=== PATIENT | female | born 1965 | race Caucasian/White ===

== ENCOUNTER 2019-03-01 08:38 | Outpatient (CLI) | payer MEDICARE, MEDICAID, SELFPAY ==
--- NOTE | 2019-03-01 08:58 | XR_ITS ---
WS: [id number] Lumbar spine, 6 views including flexion, extension and neutral lateral upright views, 03/01/2019 Clinical Data: CHRONIC PAIN Comparison: Lateral lumbar spine, 12/30/2015. Findings: There is a 0.4 cm subluxation of L4 on L5. During flexion and extension the subluxation does not change. There is no limitation of motion. The transverse processes and SI joints are normal. No compression fractures are noted. Minimal anterior o steoarthritic spurring is seen at L3, L4 and L5. There are clips in the right upper quadrant from a cholecystectomy. There is a large amount of fecal material in the colon. XR/XR lumbar spine 6V w f/e 72123 Impression: 1. Fixed subluxation of 0.4 cm of L4 on L5. 2. No change in subluxation during flexion or extension. 3. No limitation of motion on flexion or extension. 4. Minimal osteoarthritis of L3, L4 and L5.
== END 2019-03-01 08:39 | disposition home or self-care (01) ==
LOC: RAD 08:46
PROVIDERS: Family Provider Nurse Practitioner Family; PCP Nurse Practitioner Family; Visit Provider Nurse Practitioner Family
DX: M47.896 Other spondylosis, lumbar region (principal); M54.5 Low back pain; G89.29 Other chronic pain
CPT/HCPCS: 72114

== ENCOUNTER 2019-03-20 07:56 | Day surgery (SDC) | payer MEDICARE, MEDICAID, SELFPAY ==
[2019-03-05 09:59] VITALS: BMI 42.1
--- NOTE | 2019-03-20 08:13 | ANES.PREANES ---
Pre-Anesthetic Assessment Pre-Anesthetic Assessment: Height/Weight: Height 1.6 m Weight 107.955 kg Proposed Procedure: Operation Date: 03/20/19 09:30 Proposed Procedures p EGD/Colon 01176/07500 R10.84(Not Applicable) - Ayaan Villalobos MD s Colonoscopy 02267/ R10.84(Not Applicable) - Ayaan Villalobos MD Social: Social History: Tobacco (quit one year ago) and No alcohol Exam: Pre-Anes Outpt Exam: alert, oriented x 3, clear to auscultation bilaterally and regular rate & rhythm Airway: Dentition: Loose (upper right) and Other (poor) History/ROS: No significant history except as noted Pulmonary: Pulmonary: COPD, BUCIO and Sleep apnea CV/HEM: CV/HEM: Arrythmia (PAT) and HTN : : None reported Hepatic: Hepatic: None reported GI: GI: GERD (controlled) Metabolic: Metabolic: DM, Hyperlipidemia, Morbid obesity and Thyroid Musc/skel: Musc/skel: OA/DJD Neuropsych: Neuropsych: Anxiety and Depression Anesthetic Plan: ASA status: III Anesthesia: Anesthesia Evaluation and MAC Risk of > 500 ml blood loss (7ml/kg in children): No PFSH Anesthesia PFSH: Medical History Arthritis (Acute) Chronic back pain (Acute) Congenital hypothyroidism (Acute) COPD (chronic obstructive pulmonary disease) (Acute) Diabetes (Acute) Hypertension (Acute) Sleep apnea (Acute) Surgical History (Updated 03/20/19 @ 08:14 by Jamie Tong MD) Hx of section (Acute) Hx of cholecystectomy (Acute) Hx of hysterectomy (Acute) Hx of tonsillectomy (Acute) Family History (Updated 03/19/19 @ 14:24 by Jay Jordan LPN) Other Diabetes Hyperlipidemia Hypertension Social History (Updated 03/19/19 @ 14:24 by Jay Jordan LPN) Smoking and tobacco status: former smoker Quit status (tobacco): has quit using tobacco Second hand smoke exposure: Yes Smoking risk assessment/counseling performed?: Yes Alcohol intake: never Data Anesthesia Cardiac Studies: No Data to Display
[2019-03-20 08:44] VITALS: BMI 42.1
[2019-03-20 09:08] VITALS: BP 186/110; PULSE 104; RESP 16; TEMP 36.7; O2SAT 98
[2019-03-20 09:15] LABS: Glucose Point of Care 129 mg/dL (70-110)
--- NOTE | 2019-03-20 10:55 | PM.HPUD ---
H&P update H&P Update: DATE OF SURGERY/PROCEDURE: 03/20/19 DATE H&P PERFORMED: 02/02/19 H&P UPDATE INFORMATION: No changes to prior documentation and H&P to be scanned into chart PREOP DIAGNOSIS: Abdominal pain, chronic constipation PLANNED PROCEDURE: Operation Date: 03/20/19 09:30 Proposed Procedures p EGD/Colon 81035/48699 R10.84(Not Applicable) - Ayaan Villalobos MD s Colonoscopy 60284/ R10.84(Not Applicable) - Ayaan Villalobos MD Conscious Sedation: Patient reassessed prior to sedation, with no change noted: Yes PHYSICAL EXAM: alert and oriented x 3 OTHER PERTINENT EXAM FINDINGS: Abdomen: Soft Full H&P Perinent History: Medical/Surgical History: Medical History (Updated 03/20/19 @ 08:14 by Jamie Tong MD) Arthritis (Acute) Chronic back pain (Acute) Congenital hypothyroidism (Acute) COPD (chronic obstructive pulmonary disease) (Acute) Diabetes (Acute) Hypertension (Acute) Sleep apnea (Acute) Family History: Family History (Updated 03/19/19 @ 14:24 by Jay Jordan LPN) Other Diabetes Hyperlipidemia Hypertension Social History: Social History Smoking and tobacco status: former smoker Quit status (tobacco): has quit using tobacco Second hand smoke exposure: Yes Smoking risk assessment/counseling performed?: Yes Alcohol intake: never
[2019-03-20 10:57] VITALS: BP 108/73; PULSE 77; RESP 16; TEMP 36.3; O2SAT 99
--- NOTE | 2019-03-20 11:01 | ANE.PACU ---
 Inpatient post-anesthesia follow up: Airway intact: Yes Vital signs: Temperature 98.1 F Pulse Rate [Apical ] 104 Respiratory Rate 16 Blood Pressure [Le ft Arm] 186/110 Pulse Oximetry 98 Oxygen Delivery Me thod Oxygen Flow Rate Fraction of Inspir ed Oxygen Hydration adequate: Yes Nausea and vomiting: No Pain level: 3 Mental status: Baseline
[2019-03-20 11:15] VITALS: BP 124/84; PULSE 75; RESP 18; O2SAT 100
[2019-03-20] MEDS: sodium chloride 0.9% 1,000 ML 30 ML (11:27)
== END 2019-03-20 11:30 | disposition home or self-care (01) ==
PROVIDERS: Family Provider Nurse Practitioner Family; PCP Nurse Practitioner Family; Visit Provider Surgery
PROC: 0DJ08ZZ Inspection of Upper Intestinal Tract, Via Natural or Artificial Opening Endoscopic (ICD-10-PCS; CPT 43235; principal; 2019-03-20 09:30)
PROC: 0DJD8ZZ Inspection of Lower Intestinal Tract, Via Natural or Artificial Opening Endoscopic (ICD-10-PCS; CPT 45378; 2019-03-20 09:30)
DX: R10.84 Generalized abdominal pain (principal); K29.70 Gastritis, unspecified, without bleeding; M19.90 Unspecified osteoarthritis, unspecified site; J44.9 Chronic obstructive pulmonary disease, unspecified; E11.9 Type 2 diabetes mellitus without complications; I10 Essential (primary) hypertension; G47.30 Sleep apnea, unspecified; Z82.49 Family history of ischemic heart disease and other diseases of the circulatory system; Z83.3 Family history of diabetes mellitus; Z87.891 Personal history of nicotine dependence; E78.5 Hyperlipidemia, unspecified; E66.01 Morbid (severe) obesity due to excess calories; Z68.41 Body mass index [BMI] 40.0-44.9, adult
CPT/HCPCS: 12345; 36416; 43239; 45378; 82962; 88305; 96365; J2704; J7030

== ENCOUNTER 2019-04-02 15:28 | Outpatient (CLI) | payer MEDICARE, MEDICAID, SELFPAY ==
--- NOTE | 2019-04-02 15:57 | US_ITS ---
WS: [id number] Thyroid ultrasound, 04/02/2019 Clinical Data: NODULE Comparison: None. Findings: The right lobe of thyroid measures 3.1 cm x 0.9 cm x 1.5 cm. The left lobe measures 2.5 cm x 1.1 cm x 1.1 cm. The isthmus measured 0.4 mm. The echotexture of the thyroid is mixed. No nodules, cyst or masses are seen. US/US thyroid [id number] Impression: Mixed echotexture of the thyroid gland..
== END 2019-04-02 15:29 | disposition home or self-care (01) ==
LOC: RAD 15:34
PROVIDERS: Family Provider Nurse Practitioner Family; PCP Nurse Practitioner Family; Visit Provider Nurse Practitioner Family
DX: E04.1 Nontoxic single thyroid nodule (principal)
CPT/HCPCS: 76536

== ENCOUNTER 2019-04-11 15:37 | Outpatient (CLI) | payer MEDICARE, MEDICAID, SELFPAY ==
--- NOTE | 2019-04-11 16:21 | XR_ITS ---
WS: [id number] LEFT ELBOW: 3 VIEW(S) TECHNIQUE: AP, oblique and lateral. HISTORY: PAIN IN LEFT ELBOW COMPARISON: None available. No acute fractures or dislocation. No joint effusion. No soft tissue abnormality. XR/XR elbow LT min 3V* [id number] IMPRESSION: Normal LEFT elbow.
--- NOTE | 2019-04-11 16:21 | XR_ITS ---
WS: [id number] LEFT SHOULDER: 3 VIEW(S) TECHNIQUE: Internal and external rotation with Y view. HISTORY: PAIN IN LEFT SHOULDER COMPARISON: None available. No fracture or dislocation or soft tissue abnormality. Mild narrowing of the AC joint. XR/XR shoulder LT min 2V* [id number] IMPRESSION: Mild AC joint arthritis.
== END 2019-04-11 15:38 | disposition home or self-care (01) ==
LOC: RADWPI 15:43
PROVIDERS: Family Provider Nurse Practitioner Family; PCP Nurse Practitioner Family; Visit Provider Nurse Practitioner Family
DX: M19.012 Primary osteoarthritis, left shoulder (principal); M25.522 Pain in left elbow
CPT/HCPCS: 73030; 73080

== ENCOUNTER 2021-06-03 13:07 | Emergency (ER) | payer MEDICARE, MEDICAID, SELFPAY ==
[2021-06-03 13:12] VITALS: BP 149/96; PULSE 101; RESP 18; TEMP 36.2; O2SAT 97; BMI 41.3
--- NOTE | 2021-06-03 13:42 | XRR_ITS ---
PROCEDURE INFORMATION: Exam: XR Chest Exam date and time: 06/03/2021 2:02 PM Age: 55 years old Clinical indication: Pain; Shortness of breath; Angina pectoris; Additional info: Chest pain TECHNIQUE: Imaging protocol: XR of the chest. Views: 1 view. COMPARISON: CR Chest 1 [place] [id number] 12/10/2018 11:58 AM FINDINGS: Lungs: Unremarkable. No consolidation. Pleural spaces: Unremarkable. No pleural effusion. No pneumothorax. Heart/Mediastinum: Unremarkable. No cardiomegaly. Bones/joints: Unremarkable. XR/XR chest 1V portable [id number] IMPRESSION: No acute findings.
--- NOTE | 2021-06-03 13:42 | ECG_ITS ---
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 Measurements Intervals [place] Rate: 100 P: 62 DC: 164 QRS: 48 QRSD: 92 T: 50 QT: 352 QTc: 455 Interpretive Statements SINUS TACHYCARDIA POSSIBLE ANTERIOR MYOCARDIAL INFARCTION , PROBABLY OLD [30 ms Q WAVE IN V3/V4, OR R < 0.2 mV IN V4] ABNORMAL RHYTHM ECG Compared to ECG 04/18/2017 14:03:06 Myocardial infarct finding now present Sinus rhythm no longer present Sinus arrhythmia no longer present Electronically Signed On 06-03-2021 23:20:45 CDT by Darin López M.D. [id number] f
[2021-06-03 13:43] VITALS: BP 150/101; PULSE 91; RESP 16; O2SAT 100
--- NOTE | 2021-06-03 13:43 | W.ED.ARRPALP ---
HPI - Arrhythmia/Palpitations General: Chief Complaint: Arrhythmia/Palpitations Stated Complaint: N/V, chest pain Time Seen by Provider: 06/03/21 13:22 Source: patient Mode of arrival: ambulatory Limitations: no limitations History of Present Illness: 55-year-old female presents emergency room complaining of nausea vomiting and chest pain that began this morning sensation of palpitations. She is still having some mild epigastric discomfort radiating up into the substernal region. She does have a history of having angiogram was told she had some coronary artery disease but did not do any interventions. Patient is a type II diabetic with diet control. She previously had an EGD that showed bile reflux. She also has chronic constipation issues. She denied any radiation in the neck or arm with the pain. No diaphoresis she is not noticed anything that exacerbates or relieves. She does take aspirin daily she is not on any anticoagulants but is on diltiazem 120 daily and has been for a number of years to the best of her knowledge she has never been told she has atrial fibrillation. MD complaint: rapid heart beat Onset (ago): hour(s) Severity: mild Context: occurred during rest Associated symptoms: Reports nausea; Deny anxiety, cough, diaphoresis, muscle cramps, paresthesias, pre-syncope, sense of impending doom, short of breath, syncope or vomiting Review of Systems Const: Denies: fever(s), chills or diaphoresis ENMT: Denies: throat pain, ear or mastoid pain, nasal discharge or nasal congestion Card: Reports: chest pain and palpitations; Denies: edema, syncope or pre-syncope Resp: Denies: dyspnea, productive cough or non-productive cough GI: Reports: abdominal pain (Epigastric) and nausea; Denies: vomiting : Denies: flank pain, difficulty voiding, dysuria, urinary frequency or urinary urgency Musc: Denies: muscle cramps Skin/Breast: Denies: rash or pruritus Psych: Denies: anxiety PFSH ED PFSH: Medical History Arthritis Chronic back pain Chronic constipation Congenital hypothyroidism COPD (chronic obstructive pulmonary disease) Diabetes Hypertension Sleep apnea Surgical History H/O esophagogastroduodenoscopy 03/12/2019: Bile reflux Hx of section Hx of cholecystectomy Hx of hysterectomy Hx of tonsillectomy Status post colonoscopy 03/12/2019: Incomplete, will schedule barium enema Family History Other Diabetes Hyperlipidemia Hypertension Social History Smoking and tobacco status: former smoker Quit status (tobacco): has quit using tobacco Second hand smoke exposure: Yes Smoking risk assessment/counseling performed?: Yes Alcohol intake: never Physical Exam Const: GENERAL APPEARANCE: cooperative and comfortable ORIENTATION/CONSCIOUSNESS: Yes awake, Yes oriented to person, Yes oriented to place and Yes oriented to time HENMT: COMMON NORMALS: normocephalic, atraumatic and hearing grossly normal bilaterally HEAD & SCALP: normocephalic and atraumatic Neck/C-Spine: COMMON NORMALS: no JVD Resp: COMMON NORMALS: normal respiratory effort, No retractions, No use of accessory muscles and clear to auscultation bilaterally AUSCULTATION: clear to auscultation bilaterally Cardio: COMMON NORMALS: no JVD, regular rate, regular rhythm and No murmurs present (Cardio) RATE: regular rate RHYTHM: regular rhythm GI: COMMON NORMALS: Soft to palpation and No hepatosplenomegaly present AUSCULTATION: Yes normoactive bowel sounds PALPATION: Yes Soft to palpation, No Tenderness to palpation present (GI), No Guarding due to palpation present (GI) and Yes No hepatosplenomegaly present Extremity: COMMON NORMALS: normal to inspection, capillary refill normal, no clubbing, cyanosis or edema, no calf tenderness and no pedal edema Neuro: SENSORIUM/ORIENTATION: Yes oriented to person, Yes oriented to place and Yes oriented to time Skin: COMMON NORMALS: no rashes or lesions noted GENERAL SKIN EXAM: no rashes or lesions noted Course Vital Signs: Vital signs: Vital Signs Temperature 97.2 F L 06/03/21 13:12 Pulse Rate 88 06/03/21 17:59 Respiratory Rate 16 06/03/21 17:59 Blood Pressure 160/104 06/03/21 17:59 Pulse Oximetry 99 06/03/21 17:59 MDM - Arrhythmia/Palpitations Medical Decision Making Improved with GI cocktail. Overall patient's more discomfort is more epigastric. Cardiac enzymes negative EKG not show any acute changes put her on some Carafate as well as Protonix. Follow-up with her primary care doctor. Medical Records I reviewed the patient's medical records. Lab Data I reviewed the patient's lab results. : 06/03/21 13:55 06/03/21 13:55 Radiology Impressions Chest X-Ray 06/03/21 13:42 IMPRESSION: No acute findings. Laboratory Results WBC 13.7 10^3/uL (4.0-10.0) H 06/03/21 13:55 RBC 4.40 10^6/uL (4.1-5.3) 06/03/21 13:55 Hgb 13.3 g/dL (11.5-15.3) 06/03/21 13:55 Hct 40.4 % (37.0-47.0) 06/03/21 13:55 MCV 91.8 fl (81-99) 06/03/21 13:55 MCH 30.2 pg (28.0-34.0) 06/03/21 13:55 MCHC 32.9 g/dL (30.0-36.0) 06/03/21 13:55 RDW 13.7 % (12.1-15.1) 06/03/21 13:55 Plt Count 250 10^3/cmm (130-400) 06/03/21 13:55 MPV 9.4 fL (7.4-10.4) 06/03/21 13:55 Neut % (Auto) 93.4 % 06/03/21 13:55 Lymph % (Auto) 2.8 % 06/03/21 13:55 [place] % (Auto) 3.0 % 06/03/21 13:55 Eos % (Auto) 0.4 % 06/03/21 13:55 Baso % (Auto) 0.1 % 06/03/21 13:55 Neut # (Auto) 12.80 10^3/uL (1.8-7.7) H 06/03/21 13:55 Lymph # (Auto) 0.4 10^3/uL (0.8-4.8) L 06/03/21 13:55 [place] # (Auto) 0.4 10^3/uL (0.2-0.9) 06/03/21 13:55 Eos # (Auto) 0.1 10^3/uL (0.0-0.8) 06/03/21 13:55 Baso # (Auto) 0.0 10^3/uL (0.0-0.1) 06/03/21 13:55 Nucleated RBC % (auto) 0 % 06/03/21 13: Nucleated RBCs # 0.0 /100WBC 06/03/21 13:55 Sodium 139 mmol/L (136-145) 06/03/21 13:55 Potassium 4.0 mmol/L (3.5-5.1) 06/03/21 13:55 Chloride 104 mmol/L (98-107) 06/03/21 13:55 Carbon Dioxide 23 mmol/L (22-29) 06/03/21 13:55 Anion Gap 16.0 (5-19) 06/03/21 13:55 BUN 16 mg/dL (6-20) 06/03/21 13:55 Creatinine 0.7 mg/dL (0.5-0.9) 06/03/21 13:55 GFR Calculation 86.9 mL/min (90-130) L 06/03/21 13:55 Glucose 114 mg/dL (65-115) 06/03/21 13:55 Calculated Osmolality 290 mOsm/kg (285-295) 06/03/21 13:55 Calcium 9.6 mg/dL (8.5-10.5) 06/03/21 13:55 Total Bilirubin 0.6 mg/dL (0.15-1.2) 06/03/21 13:55 AST 17 U/L (0-32) 06/03/21 13:55 ALT 21 U/L (0-33) 06/03/21 13:55 Alkaline Phosphatase 95 IU/L (35-105) 06/03/21 13:55 Troponin T Baseline 6 ng/L (0-10) 06/03/21 13:55 Troponin T 120 Minute 8.54 ng/L (0-10) 06/03/21 16:12 Delta Troponin T 2.54 ABS# (0-10) 06/03/21 16:12 Total Protein 7.3 g/dL (6.6-8.7) 06/03/21 13:55 Albumin 4.7 g/dL (3.5-5.2) 06/03/21 13:55 Globulin 2.6 g/dL (1.3-4.6) 06/03/21 13:55 Urine Color Yellow (Yellow) 06/03/21 14:10 Urine Appearance Turbid (CLEAR) 06/03/21 14:10 Urine pH 5 (5-7) 06/03/21 14:10 Ur Specific [place] 1.025 (1.005-1.030) 06/03/21 14:10 Urine Protein Neg (Negative) 06/03/21 14:10 Urine Glucose (UA) Norm (Normal) 06/03/21 14:10 Urine Ketones 1+ (Negative) H 06/03/21 14:10 Urine Blood Neg (Negative) 06/03/21 14:10 Urine Nitrate Negative (Negative) 06/03/21 14:10 Urine Bilirubin Neg (Negative) 06/03/21 14:10 Urine Urobilinogen Norm mg/dL (Negative) 06/03/21 14:10 Ur Leukocyte Esterase Negative (Negative) 06/03/21 14:10 Discharge Plan Discharge Patient Disposition: Home Clinical Impression: Gastroenteritis, GERD (gastroesophageal reflux disease) Condition: Stable Prescriptions: New Carafate 1 gram tablet 1 g PO Q6H PRN (Reason: upset stomach) Qty: 60 0RF ondansetron HCl 4 mg tablet 4 mg PO Q6H PRN (Reason: nausea and vomiting) Qty: 20 0RF Protonix 40 mg tablet,delayed release (DR/EC) 40 mg PO BID 28 Days Qty: 56 0RF No Action aspirin [Aspir-81] 81 mg Tablet,Delayed Release (Dr/Ec) 81 mg PO DAILY 0RF pantoprazole 40 mg tablet,delayed release (DR/EC) 40 mg PO DAILY 0RF cholecalciferol (vitamin D3) [Vitamin D3] 400 unit Capsule 400 unit PO DAILY 0RF levothyroxine 112 mcg Tablet 112 mcg PO DAILY 0RF lisinopril 20 mg tablet 10 mg PO DAILY 0RF DILT-XR 120 mg capsule,ext.rel 24h degradable 120 mg PO DAILY 0RF Discharge Orders: Discharge ED (Routine); Ordered 06/03/21 Ordered By: Ruiz Ricardo Discharge Diet: Usual diet Discharge Activity: Increase activity as tolerated Patient Instructions: Opioid Safety Activity Restrictions/Additional Instructions: Use Carafate as needed. Start Protonix 40 p.o. daily. Use ondansetron as needed. Case management will help get you set up with a primary care physician. Coding Level of Care Code ED Digital Marketing Apprentice for Chg Fwd Exam Comprehensive
[2021-06-03 14:01] LABS: Basophils % 0.1 %; Eosinophils # 0.1 10^3/uL (0.0-0.8); Eosinophils % 0.4 %; Hematocrit 40.4 % (37.0-47.0); Hemoglobin 13.3 g/dL (11.5-15.3); Lymphocytes # 0.4 10^3/uL (0.8-4.8); Lymphocytes % 2.8 %; Mean Corpuscular HGB Conc 32.9 g/dL (30.0-36.0); Mean Corpuscular Hemoglobin 30.2 pg (28.0-34.0); Mean Corpuscular Volume 91.8 fl (81-99); Mean Platelet Volume 9.4 fL (7.4-10.4); Monocytes # 0.4 10^3/uL (0.2-0.9); Neutrophils % 93.4 %; Nucleated Red Blood Cells % 0 %; Platelet Count 250 10^3/cmm (130-400); Red Cell Distribution Width 13.7 % (12.1-15.1); White Blood Count 13.7 10^3/uL (4.0-10.0)
[2021-06-03 14:09] VITALS: BP 150/101; PULSE 95; RESP 16; O2SAT 97
[2021-06-03 14:13] LABS: Add Urine Microscopic? NO; Charge for UA Resulting for Rev
[2021-06-03] MEDS: lidocaine 2% viscous 15 ML, aluminum-mag hydrox-simethicon 30 ML, sucralfate oral liq 1 GM PO ×2 (14:17→17:32)
[2021-06-03 14:24] LABS: Bilirubin Urine Neg (Negative); Blood Urine Neg (Negative); Glucose Urine UA Norm (Normal); Ketones Urine 1+ (Negative); Leukocyte Esterase Urine Negative (Negative); Nitrate Urine Negative (Negative); Protein Urine Neg (Negative); Specific Gravity, Urine 1.025 (1.005-1.030); Urine Appearance Turbid (CLEAR); Urine Color Yellow (Yellow); Urobilinogen Urine Norm (Negative); pH Urine 5 (5-7)
[2021-06-03 14:34] VITALS: BP 161/97; PULSE 85; RESP 16; O2SAT 96
[2021-06-03 14:37] LABS: Troponin(5th) Baseline 6 ng/L (0-10)
[2021-06-03 14:40] LABS: Alanine Aminotransferase 21 U/L (0-33); Albumin Level 4.7 g/dL (3.5-5.2); Alkaline Phosphatase 95 IU/L (35-105); Aspartate Amino Transferase 17 U/L (0-32); Blood Urea Nitrogen 16 mg/dL (6-20); Calcium 9.6 mg/dL (8.5-10.5); Carbon Dioxide 23 mmol/L (22-29); Chloride 104 mmol/L (98-107); Globulin 2.6 g/dL (1.3-4.6); Glomerular Filtration Rate 86.9 mL/min (90-130); Glucose 114 mg/dL (65-115); Osmolality Calculated 290 mOsm/kg (285-295); Sodium 139 mmol/L (136-145); Total Bilirubin 0.6 mg/dL (0.15-1.2); Total Protein 7.3 g/dL (6.6-8.7)
--- NOTE | 2021-06-03 15:42 | ECG_ITS ---
[facility] Test Date: 2021-06-03 Pat Name: Trinity Benites Department: Room: Gender: Female Science Technician: : 1965 Requested By: Ruiz Judge Order Number: [id number] Dane MD: Darin López M.D. Measurements Intervals [employer] Rate: 88 P: 52 KS: 164 QRS: 41 QRSD: 101 T: 44 QT: 369 QTc: 448 Interpretive Statements SINUS RHYTHM POSSIBLE INFERIOR MYOCARDIAL INFARCTION , PROBABLY OLD [30 ms Q WAVE IN II/aVF] Compared to ECG 06/03/2021 13:17:40 Sinus tachycardia no longer present Myocardial infarct finding still present Electronically Signed On 06-03-2021 23:33:51 CDT by Darin López M.D. [email or web address]/store/OM/[id number]
[2021-06-03 16:41] LABS: Troponin 5 2HR 8.54 ng/L (0-10)
[2021-06-03 16:47] VITALS: BP 151/89; PULSE 88; RESP 16; O2SAT 96
[2021-06-03 16:59] LABS: Troponin 5 2HR Delta 2.54 ABS# (0-10)
[2021-06-03] MEDS: promethazine 25 mg/mL SDV 1 mL IM (17:47)
[2021-06-03 17:59] VITALS: BP 160/104; PULSE 88; RESP 16; O2SAT 99
--- NOTE | 2021-06-09 10:29 | DCPLANNER ---
Addendum entered by Pily Hernandez 06/16/21 22:15: Patients appointment with Dr. Hall - was cancelled Original Note: inside channel account manager had message to speak with patient about getting established with a primary care physician. inside channel account manager spoke with patient and she stated that she wanted to get established with a primary care. inside channel account manager called [facility], spoke with Trudy, gave clinic patients information. A follow up appointment was scheduled for Thursday, June 10, 2021 at 1:[address] Hall. inside channel account manager called patient and gave patient the appointment information.
--- NOTE | 2021-06-09 11:03 | DCPLANNER ---
Addendum entered by Pily Hernandez 07/17/21 19:26: Stress test was rescheduled for a later date. Addendum entered by Pily Hernandez 06/25/21 21:44: Patient has an out patient stress test scheduled for , July 16, 2021 at 11:30. Centralized scheduling will call patient with appointment information. Original Note: talent management manager had message to schedule an outpatient stress test for patient. talent management manager faxed signed order to centralized scheduling, who will call patient with appointment information.
== END 2021-06-03 18:01 | disposition home or self-care (01) ==
PROVIDERS: Emergency Provider Family Medicine
DX: K52.9 Noninfective gastroenteritis and colitis, unspecified (principal); K21.9 Gastro-esophageal reflux disease without esophagitis; Z87.891 Personal history of nicotine dependence; Z79.82 Long term (current) use of aspirin
CPT/HCPCS: 71045; 80053; 81003; 84484; 85025; 93005; 96372; 99284; J2550

== ENCOUNTER 2021-07-07 07:59 | Emergency (ER) | payer MEDICARE, MEDICAID, SELFPAY ==
[2021-07-07 08:04] VITALS: BP 179/101; PULSE 81; RESP 16; TEMP 36.7; O2SAT 97; BMI 42.0
[2021-07-07 08:10] VITALS: BP 161/110; PULSE 81; RESP 18; TEMP 36.6; O2SAT 97
--- NOTE | 2021-07-07 08:22 | USCV_ITS ---
Trinity Benites Age: 55 Gender: F : 1965 Exam Date: 07/07/2021 08:34 Ordering Phys: Madhuri Hackett Technologist: VÍCTOR Exam Location: [facility] [place] [place]_ Indication: LUE PAIN HISTORY: Upper extremity swelling. Upper extremity pain. PROCEDURES: Venous duplex imaging was performed in only the left upper extremity. The following venous structures were evaluated: internal jugular vein, subclavian vein, axillary vein, and brachial veins. In addition, the basilic vein, cephalic vein, radial vein, and ulnar vein. Serial compression, augmentation maneuvers, and spectral Doppler flow evaluation were performed. FINDINGS: No evidence of deep vein thrombosis or superficial thrombophlebitis in the left upper extremity. CONCLUSIONS No evidence of thrombus of the left upper extremity veins. Terrell June MD (Electronically Signed) Final Date: 07 Jul 2021 09:28 S
--- NOTE | 2021-07-07 08:23 | ED_ITS ---
HPI - Extremity Problem General: Chief complaint: Extremity Injury, Upper Stated complaint: Left arm pain Time Seen by Provider: 07/07/21 08:00 Source: patient Mode of arrival: ambulatory Limitations: no limitations History of Present Illness: Patient is a nice 55-year-old female who presents to ED today for evaluation of left upper arm pain. Patient tells me yesterday morning she awoke with the discomfort and initially thought that maybe she had slept on the extremity wrong. She states over the course of the day and into today pain has persisted. She states her and her have been doing a large amount of gardening and working outdoors and wonders if maybe she strained something in her arm. She does feel like the upper portion of her arm is slightly swollen. She also thinks she remembers that at some point she was opening her car door (car was parked on an incline) and the door swung open and struck her arm but isn't sure if this could be related. She has not noticed any redness or warmth to the extremity. Denies numbness, tingling, loss of sensation. She is not having any pain to the shoulder or elbow joint. MD Complaint: extremity pain and extremity swelling Onset (ago): day(s) Pain Consistency: constant Location: left and upper extremity Radiation: none Relieving factors: rest Exacerbating factors: range of motion and palpation Associated symptoms: Reports no associated symptoms; Deny chest pain, fever(s) or rash Review of Systems Const: Denies: fever(s), chills, body aches, fatigue or malaise Card: Denies: chest pain Resp: Denies: dyspnea GI: Denies: abdominal pain Musc: Reports: extremity pain, extremity swelling and limited range of motion; Denies: neck pain, back pain, joint pain, joint swelling, joint redness or joint warmth Skin/Breast: Denies: rash Neuro: Denies: headache(s), numbness in extremities, weakness in extremities, sensory changes or dizziness ON LICENSE OF [facility] ED PFSH: Medical History Arthritis Chronic back pain Chronic constipation Congenital hypothyroidism COPD (chronic obstructive pulmonary disease) Diabetes Hypertension Sleep apnea Surgical History H/O esophagogastroduodenoscopy 03/12/2019: Bile reflux Hx of section Hx of cholecystectomy Hx of hysterectomy Hx of tonsillectomy Status post colonoscopy 03/12/2019: Incomplete, will schedule barium enema Family History Other Diabetes Hyperlipidemia Hypertension Social History Smoking and tobacco status: former smoker Quit status (tobacco): has quit using tobacco Second hand smoke exposure: Yes Smoking risk assessment/counseling performed?: Yes Alcohol intake: never Physical Exam Const: COMMON NORMALS: no acute distress, patient oriented x3, no limitations and alert GENERAL APPEARANCE: cooperative NUTRITIONAL APPEARANCE: obese ORIENTATION/CONSCIOUSNESS: Yes awake, Yes oriented to person, Yes oriented to place and Yes oriented to time Neck/C-Spine: COMMON NORMALS: full ROM GENERAL: Yes normal visual inspection CERVICAL SPINE: Yes cervical ROM normal, No pain with cervical ROM, No Cervical spine tenderness, No step off deformity and No Paracervical muscle tenderness Chest: COMMONS NORMALS: normal inspection of the chest and normal palpation of entire chest wall Resp: COMMON NORMALS: normal respiratory effort and clear to auscultation bilaterally AUSCULTATION: clear to auscultation bilaterally Cardio: COMMON NORMALS: regular rate and regular rhythm RATE: regular rate RHYTHM: regular rhythm Extremity: COMMON NORMALS: capillary refill normal and no joint enlargement GENERAL: Yes normal exam except as noted EXTREMITY IMAGE (FRONT): 1. TTP; feels like area is swollen but I do not appreciate obvious swelling-limited by body habitus; pulses/cap refill/sensation normal; extremities equal color/temp bilaterally; she has no pain with palpation shoulder or elbow joints however pain elicited to outlined area with ROM of these joints Neuro: LINETTE COMA SCALE: document GCS findings [place] coma scale eye opening: Spontaneous [place] coma scale verbal response: Orientated [place] coma scale motor response: Obey commands Lin[place] coma scale total score: 15 COMMON NORMALS: patient oriented x3, moves all extremities, no focal motor deficits and no sensory deficits noted SENSORIUM/ORIENTATION: Yes alert, Yes oriented to person, Yes oriented to place and Yes oriented to time Skin: COMMON NORMALS: no rashes or lesions noted GENERAL SKIN EXAM: no rashes or lesions noted TRAUMA: no lacerations or abrasions Course Vital Signs: Vital signs: Vital Signs Temperature 97.9 F 07/07/21 08:40 Pulse Rate 72 07/07/21 08:40 Respiratory Rate 18 07/07/21 08:40 Blood Pressure 165/91 07/07/21 08:40 Pulse Oximetry 96 07/07/21 08:40 MDM - Extremity (Nontraumatic) Medical Decision Making Patient has tenderness to palpation of the superior portion of her biceps brachii muscle. Neither her history or physical exam would be consistent with a bicep tendon rupture. I would have a low suspicion for any type of bony injury based on her lack of injury/trauma. Did give a possible history of a car door hinge swinging open and striking her arm however I cannot imagine this would cause enough force for humeral fracture. Due to patient concerns for swelling I did obtain US imaging which was negative for DVT. At this time I would recommend conservative treatment and follow-up with her PCP Dr. Cevallos 1 to 2 weeks for continued pain. Discussed anti-inflammatory use however patient does have a history of a gastric ulcer therefore will not recommend. Will place on a Medrol Dosepak. Recommend alternating ice, heat, rest, and passive range of motion at home. Patient also had a complaint at the end of our visit of dental pain/infection. She states she can taste the infection in her mouth. No obvious dental abscess was noted but she does have widespread dental caries/disease. Will go ahead and place on some antibiotics for this and recommend prompt dental follow up. Discharge Plan Discharge Patient Disposition: Home Clinical Impression: Dental infection Biceps tendinitis Qualifiers: Laterality: left Qualified Code(s): M75.22 - Bicipital tendinitis, left shoulder Condition: Stable Prescriptions: New amoxicillin 500 mg capsule 500 mg PO BID 7 Days Qty: 14 0RF Medrol (Osmar) 4 mg tablets,dose pack See Rx Instructions .ROUTE .COMPLEX Qty: 21 0RF Rx Instructions: orally per package directions No Action aspirin [Aspir-81] 81 mg Tablet,Delayed Release (Dr/Ec) 81 mg PO DAILY 0RF pantoprazole 40 mg tablet,delayed release (DR/EC) 40 mg PO DAILY 0RF cholecalciferol (vitamin D3) [Vitamin D3] 400 unit Capsule 400 unit PO DAILY 0RF levothyroxine 112 mcg Tablet 112 mcg PO DAILY 0RF lisinopril 20 mg tablet 10 mg PO DAILY 0RF DILT-XR 120 mg capsule,ext.rel 24h degradable 120 mg PO DAILY 0RF Carafate 1 gram tablet 1 g PO Q6H PRN (Reason: upset stomach) Qty: 60 0RF ondansetron HCl 4 mg tablet 4 mg PO Q6H PRN (Reason: nausea and vomiting) Qty: 20 0RF Discharge Orders: Discharge ED (Routine); Ordered 07/07/21 Ordered By: Madhuri Hackett Coding Level of Care Code ED Thermoforming Operator for Mike Alonzo
[2021-07-07 08:40] VITALS: BP 165/91; PULSE 72; RESP 18; TEMP 36.6; O2SAT 96
== END 2021-07-07 09:12 | disposition home or self-care (01) ==
PROVIDERS: Emergency Provider Physician Assistant
DX: M75.22 Bicipital tendinitis, left shoulder (principal); M79.602 Pain in left arm; K04.7 Periapical abscess without sinus
CPT/HCPCS: 93971; 99283

== ENCOUNTER → 2021-07-08 16:50 | Outpatient (BNVA) | payer MEDICARE, MEDICAID, SELFPAY | PROVIDERS: Visit Provider Nurse Practitioner Family | DX: M25.512 Pain in left shoulder (principal); R29.898 Other symptoms and signs involving the musculoskeletal system | CPT/HCPCS: 73030 ==

== ENCOUNTER → 2021-07-30 15:31 | Outpatient (BNVA) | payer MEDICARE, MEDICAID, SELFPAY | PROVIDERS: Visit Provider Family Medicine | DX: E03.9 Hypothyroidism, unspecified (principal); K21.9 Gastro-esophageal reflux disease without esophagitis; Z76.89 Persons encountering health services in other specified circumstances; E55.9 Vitamin D deficiency, unspecified; E53.8 Deficiency of other specified B group vitamins; F41.1 Generalized anxiety disorder; F41.0 Panic disorder [episodic paroxysmal anxiety]; K04.7 Periapical abscess without sinus | CPT/HCPCS: 80053; 80061; 83036; 84439; 84443; 85025 ==

== ENCOUNTER 2021-11-01 07:10 | Emergency (ER) | payer MEDICARE, MEDICAID, SELFPAY ==
[2021-11-01 07:14] VITALS: BP 185/119; PULSE 112; RESP 15; TEMP 36.9; O2SAT 99; BMI 42.4
--- NOTE | 2021-11-01 07:20 | XRR_ITS ---
PROCEDURE INFORMATION: Exam: XR Chest Exam date and time: 11/01/2021 7:31 AM Age: 55 years old Clinical indication: Pain; Chest pressure; Additional info: Cp TECHNIQUE: Imaging protocol: Radiologic exam of the chest. Views: 1 view. COMPARISON: CR XR chest 1V portable [id number] 06/03/2021 2:02 PM FINDINGS: Lungs: No CHF/pulmonary edema. Visible lungs appear essentially clear. Pleural spaces: No visible pneumothorax. No definite pleural fluid. Heart/Mediastinum: Heart size is within normal limits. Bones/joints: No significant acute finding. XR/XR chest 1V portable [id number] IMPRESSION: 1. Essentially unremarkable single view chest. 2. Other findings discussed above.
--- NOTE | 2021-11-01 07:20 | CTR_ITS ---
PROCEDURE INFORMATION: Exam: CT Head Without Contrast Exam date and time: 11/01/2021 7:34 AM Age: 55 years old Clinical indication: Dizziness; Additional info: TIA TECHNIQUE: Imaging protocol: Computed tomography of the head without contrast. Radiation optimization: All CT scans at this facility use at least one of these dose optimization techniques: automated exposure control; mA and/or kV adjustment per patient size (includes targeted exams where dose is matched to clinical indication); or iterative reconstruction. COMPARISON: No relevant prior studies available. RADIATION DOSE METRICS: Total DLP (mGy-cm): 1073.69 FINDINGS: Brain: No acute intracranial hemorrhage or mass effect. No definite acute infarct by CT. MRI could be more sensitive/specific for detection, as clinically directed. Cerebral ventricles: Ventricle size is normal for age. Paranasal sinuses: Included paranasal sinuses are essentially clear. Mastoid air cells: No significant acute finding. Bones/joints: No definite acute skull fracture. Soft tissues: No significant acute finding. Vasculature: Vascular calcifications in the internal carotid arteries. CT/CT head wo con* [id number] IMPRESSION: 1. No acute intracranial hemorrhage or mass effect. 2. No definite acute infarct by CT, see above. 3. Other findings discussed above.
--- NOTE | 2021-11-01 07:25 | ED_ITS ---
HPI - Arrhythmia/Palpitations General: Chief Complaint: Arrhythmia/Palpitations Stated Complaint: Heart racing Time Seen by Provider: 11/01/21 07:16 History of Present Illness: 55-year-old female presents with some complaints of the funny feeling in left side of her body feels a little funny in her face left arm and shoulder. She has some nausea. She reports that around 4 AM she was still finding her left chest and her nausea and epigastric area has been upset for couple days. She reports that about 8 months ago she had what they she believed they called a TIA. Patient has some minor shortness of breath. She felt like her heart was racing. She reports that happened when she was try to go back to sleep after waking up around 4 AM. She feels like her heart is racing patient denies any abdominal pain, fever, chills, cough. Associated symptoms: Reports nausea; Deny vomiting Review of Systems Const: Reports: malaise; Denies: fever(s) or chills Eyes: Denies: change in vision or blurry vision ENMT: Denies: throat pain or ear or mastoid pain Card: Reports: chest pain and palpitations Resp: Reports: dyspnea; Denies: productive cough, wheezing or chest congestion GI: Reports: abdominal pain (Epigastric discomfort) and nausea; Denies: vomiting : Reports: flank pain and urinary urgency Musc: Denies: neck pain, back pain or extremity pain Skin/Breast: Denies: rash or erythema Neuro: Denies: headache(s) or numbness in extremities PFS ED PFSH: Medical History Arthritis Chronic back pain Chronic constipation Congenital hypothyroidism COPD (chronic obstructive pulmonary disease) Diabetes Hypertension Sleep apnea Surgical History H/O esophagogastroduodenoscopy 03/12/2019: Bile reflux Hx of section Hx of cholecystectomy Hx of hysterectomy Hx of tonsillectomy Status post colonoscopy 03/12/2019: Incomplete, will schedule barium enema Family History Other Diabetes Hyperlipidemia Hypertension Social History Smoking and tobacco status: never smoked Quit status (tobacco): has quit using tobacco Second hand smoke exposure: Yes Smoking risk assessment/counseling performed?: Yes Alcohol intake: never Physical Exam Const: COMMON NORMALS: patient oriented x3 GENERAL APPEARANCE: cooperative, comfortable and well developed; not in distress NUTRITIONAL APPEARANCE: obese HENMT: COMMON NORMALS: normocephalic, atraumatic, hearing grossly normal bilaterally and moist oral mucous membranes HEAD & SCALP: normocephalic and atraumatic Eye: COMMON NORMALS: Equal, round and reactive pupils present and EOMs intact bilaterally GENERAL EYE: appearance normal, both eyes and all related structures PUPIL: Yes Equal, round and reactive pupils present Neck/C-Spine: COMMON NORMALS: full ROM and supple Resp: COMMON NORMALS: normal respiratory effort, No use of accessory muscles and clear to auscultation bilaterally EFFORT & INSPECTION: Yes able to speak in complete sentences AUSCULTATION: clear to auscultation bilaterally Cardio: COMMON NORMALS: regular rate, regular rhythm and Peripheral pulses 2+ throughout RATE: regular rate RHYTHM: regular rhythm PERIPHERAL PULSES: Peripheral pulses 2+ throughout GI: COMMON NORMALS: Soft to palpation and non-tender PALPATION: Yes Soft to palpation Extremity: COMMON NORMALS: normal to inspection, full ROM and capillary refill normal Neuro: COMMON NORMALS: patient oriented x3, moves all extremities, no focal motor deficits, no sensory deficits noted and gait normal Psych: COMMON NORMALS: mental status grossly normal, Normal thought process present and cooperative THOUGHT PROCESS: Normal thought process present Skin: COMMON NORMALS: no rashes or lesions noted GENERAL SKIN EXAM: no rashes or lesions noted Course Vital Signs: Vital signs: Vital Signs Temperature 98.5 F 11/01/21 07:14 Pulse Rate 67 11/01/21 08:21 Respiratory Rate 12 11/01/21 08:21 Blood Pressure 166/123 11/01/21 08:21 Pulse Oximetry 94 11/01/21 08:21 Oxygen Delivery Me thod 11/01/21 08:21 MDM - Arrhythmia/Palpitations Medical Decision Making Patient with no significant cardiac findings on exam, EKG x2 and troponin x2. Patient with sleep apnea which I feel may be contributing to her awaking with feeling of shortness of breath may be her heart racing. I discussed with her need to be sure she wears her CPAP since she had been wearing it at night. She does have what appears to be an acute cystitis with urinary complaints I will treat her with Macrobid. Recommend she follow-up outpatient with her primary care provider for further cardiac work-up including possible stress test, cardiology consult and later else they feel necessary. Patient stable and discharged home Lab Data : 11/01/21 07:23 11/01/21 07:23 Radiology Impressions Chest X-Ray 11/01/21:20 IMPRESSION: 1. Essentially unremarkable single view chest. 2. Other findings discussed above. Head CT 11/01/21 07:20 IMPRESSION: 1. No acute intracranial hemorrhage or mass effect. 2. No definite acute infarct by CT, see above. 3. Other findings discussed above. Laboratory Results WBC 7.1 10^3/uL (4.0-10.0) 11/01/21 07: RBC 4.32 10^6/uL (4.1-5.3) 11/01/21 07:23 Hgb 12.8 g/dL (11.5-15.3) 11/01/21 07: Hct 39.4 % (37.0-47.0) 11/01/21 07:23 MCV 91.2 fl (81-99) 11/01/21 07: MCH 29.6 pg (28.0-34.0) 11/01/21 07: MCHC 32.5 g/dL (30.0-36.0) 11/01/21 07: RDW 14.0 % (12.1-15.1) 11/01/21 07:23 Plt Count 258 10^3/cmm (130-400) 11/01/21 07:23 MPV 9.0 fL (7.4-10.4) 11/01/21 07:23 Neut % (Auto) 62.7 % 11/01/21 07:23 Lymph % (Auto) 28.5 % 11/01/21 07:23 [place] % (Auto) 5.8 % 11/01/21 07: Eos % (Auto) 2.1 % 11/01/21 07:23 Baso % (Auto) 0.6 % 11/01/21 07:23 Neut # (Auto) 4.45 10^3/uL (1.8-7.7) 11/01/21 07: Lymph # (Auto) 2.0 10^3/uL (0.8-4.8) 11/01/21 07:23 [place] # (Auto) 0.4 10^3/uL (0.2-0.9) 11/01/21 07:23 Eos # (Auto) 0.2 10^3/uL (0.0-0.8) 11/01/21 07:23 Baso # (Auto) 0.0 10^3/uL (0.0-0.1) 11/01/21 07:23 Nucleated RBC % (auto) 0 % 11/01/21 07:23 Nucleated RBCs # 0.0 /100WBC 11/01/21 07:23 Sodium 139 mmol/L (136-145) 11/01/21 07:23 Potassium 3.8 mmol/L (3.5-5.1) 11/01/21 07:23 Chloride 101 mmol/L (98-107) 11/01/21 07:23 Carbon Dioxide 28 mmol/L (22-29) 11/01/21 07:23 Anion Gap 13.8 (5-19) 11/01/21 07:23 BUN 14 mg/dL (6-20) 11/01/21 07:23 Creatinine 0.8 mg/dL (0.5-0.9) 11/01/21 07:23 GFR Calculation 74.5 mL/min (90-130) L 11/01/21 07:23 Glucose 128 mg/dL (65-115) H 11/01/21 07:23 Calculated Osmolality 290 mOsm/kg (285-295) 11/01/21 07:23 Calcium 9.8 mg/dL (8.5-10.5) 11/01/21 07:23 Magnesium 2.1 mg/dL (1.7-2.3) 11/01/21 07:23 Total Bilirubin 0.3 mg/dL (0.15-1.2) 11/01/21 07:23 AST 16 U/L (0-32) 11/01/21 07:23 ALT 15 U/L (0-33) 11/01/21 07:23 Alkaline Phosphatase 99 U/L (35-105) 11/01/21 07:23 Troponin T Baseline 7 ng/L (0-10) 11/01/21 07:23 Troponin T 120 Minute 9.63 ng/L (0-10) 11/01/21 09:24 Delta Troponin T 2.63 ABS# (0-10) 11/01/21 09:24 Total Protein 7.6 g/dL (6.6-8.7) 11/01/21 07:23 Albumin 4.7 g/dL (3.5-5.2) 11/01/21 07:23 Globulin 2.9 g/dL (1.3-4.6) 11/01/21 07:23 Lipase 32 U/L (13-60) 11/01/21 07:23 Urine Color Straw (Yellow) 11/01/21 07:17 Urine Appearance Clear (CLEAR) 11/01/21 07:17 Urine pH 7 (5-7) 11/01/21 07:17 Ur Specific [place] 1.005 (1.005-1.030) 11/01/21 07:17 Urine Protein Neg (Negative) 11/01/21 07:17 Urine Glucose (UA) Norm (Normal) 11/01/21 07:17 Urine Ketones Negative (Negative) 11/01/21 07:17 Urine Blood Neg (Negative) 11/01/21 07:17 Urine Nitrate Negative (Negative) 11/01/21 07:17 Urine Bilirubin Neg (Negative) 11/01/21 07:17 Urine Urobilinogen Norm mg/dL (Negative) 11/01/21 07:17 Ur Leukocyte Esterase Trace (Negative) H 11/01/21 07:17 Urine RBC None /hpf (0-2) 11/01/21 07:17 Urine WBC 0-4 /hpf (0-5) H 11/01/21 07:17 Ur Squamous Epith Cells 0-4 /hpf (0-5) H 11/01/21 07:17 Amorphous Sediment Not Reportable 11/01/21 07:17 Urine Bacteria Trace /hpf (NONE) 11/01/21 07:17 EKG Data EKG 1: I personally reviewed and interpreted this EKG as follows: Interpretation: nsr, hr 98, qrs [address], t wave changes Other EKG comments: Chest X-Ray 11/01/21 07:20 IMPRESSION: 1. Essentially unremarkable single view chest. 2. Other findings discussed above. Head CT 11/01/21 07:20 IMPRESSION: 1. No acute intracranial hemorrhage or mass effect. 2. No definite acute infarct by CT, see above. 3. Other findings discussed above. EKG 2: I personally reviewed and interpreted this EKG as follows: EKG interpretation date: 11/01/21 EKG interpretation time: 09:25 Interpretation: hr 68, sinus , pr 177, qrs 109 unchanged from previous Other EKG comments: Chest X-Ray 11/01/21 07:20 IMPRESSION: 1. Essentially unremarkable single view chest. 2. Other findings discussed above. Head CT 11/01/21 07:20 IMPRESSION: 1. No acute intracranial hemorrhage or mass effect. 2. No definite acute infarct by CT, see above. 3. Other findings discussed above. Discharge Plan Discharge Patient Disposition: Home Clinical Impression: Acute nonspecific chest pain with low risk of coronary artery disease, Sleep apnea, Acute cystitis without hematuria Condition: Stable Prescriptions: New Macrobid 100 mg capsule 100 mg PO BID 3 Days Qty: 6 0RF Rx Instructions: must administer with a meal/food No Action acetaminophen [Tylenol Arthritis Pain] 650 mg tablet extended release 1,300 mg PO TID PRN (Reason: pain) 30 Days Qty: 300 1RF levothyroxine 112 mcg tablet 112 mcg PO DAILY Qty: 30 0RF duloxetine 30 mg capsule,delayed release(DR/EC) 30 mg PO DAILY Qty: 90 1RF amoxicillin 500 mg tablet 500 mg PO Q8H 10 Days Qty: 30 0RF lisinopril 20 mg tablet 10 mg PO DAILY Qty: 90 3RF pantoprazole 40 mg tablet,delayed release (DR/EC) 40 mg PO DAILY Qty: 90 3RF amoxicillin-pot clavulanate 875-125 mg tablet 1 tab PO Q12H Qty: 20 0RF DILT-XR 120 mg capsule,ext.rel 24h degradable 120 mg PO DAILY Qty: 90 0RF aspirin [Aspir-81] 81 mg Tablet,Delayed Release (Dr/Ec) 81 mg PO DAILY cholecalciferol (vitamin D3) [Vitamin D3] 400 unit Capsule 400 unit PO DAILY Discharge Orders: Discharge ED (Routine); Ordered 11/01/21 Ordered By: Juanpablo Cooper Referrals: Wilfredo Hall DO [Primary Care Provider] - Discharge Diet: Usual diet Discharge Activity: Resume usual activity Patient Instructions: Opioid Safety Activity Restrictions/Additional Instructions: Please follow-up with your primary care provider for further outpatient evaluation and further cardiology consultation. Return to the ER as needed Coding Level of Care Code ED Curriculum And Assessment Director for Chg Fwd Exam Comprehensive
--- NOTE | 2021-11-01 07:27 | ECG_ITS ---
[facility] Test Date: 2021-11-01 Pat Name: Trinity Benites Department: Room: Gender: Female Transfer Driver: : 1965 Requested By: Juanpablo Cooper Order Number: [id number] Dane MD: Jadiel Krishna M.D. Measurements Intervals [place] Rate: 98 P: 57 SD: 175 QRS: 25 QRSD: 101 T: 35 QT: 366 QTc: 468 Interpretive Statements SINUS RHYTHM POSSIBLE INFERIOR MYOCARDIAL INFARCTION , PROBABLY OLD [30 ms Q WAVE IN II/aVF] Compared to ECG 06/03/2021 16:32:09 No significant changes Electronically Signed On 11-01-2021 13:17:11 CDT by Jadiel Krishna M.D. [id number]
[2021-11-01 07:31] LABS: Basophils % 0.6 %; Eosinophils # 0.2 10^3/uL (0.0-0.8); Eosinophils % 2.1 %; Hematocrit 39.4 % (37.0-47.0); Hemoglobin 12.8 g/dL (11.5-15.3); Lymphocytes % 28.5 %; Mean Corpuscular HGB Conc 32.5 g/dL (30.0-36.0); Mean Corpuscular Hemoglobin 29.6 pg (28.0-34.0); Mean Corpuscular Volume 91.2 fl (81-99); Monocytes # 0.4 10^3/uL (0.2-0.9); Monocytes % 5.8 %; Neutrophils # 4.45 10^3/uL (1.8-7.7); Neutrophils % 62.7 %; Nucleated Red Blood Cells % 0 %; Platelet Count 258 10^3/cmm (130-400); Red Blood Count 4.32 10^6/uL (4.1-5.3); White Blood Count 7.1 10^3/uL (4.0-10.0)
[2021-11-01 08:04] LABS: Add Urine Microscopic? YES; Bilirubin Urine Neg (Negative); Blood Urine Neg (Negative); Glucose Urine UA Norm (Normal); Ketones Urine Negative (Negative); Leukocyte Esterase Urine Trace (Negative); Nitrate Urine Negative (Negative); Protein Urine Neg (Negative); Specific Gravity, Urine 1.005 (1.005-1.030); Urine Appearance Clear (CLEAR); Urine Color Straw (Yellow); Urobilinogen Urine Norm (Negative); pH Urine 7 (5-7)
[2021-11-01 08:06] LABS: Squamous Epithelial Cell Urine 0-4 /hpf (0-5); WBC Urine 0-4 /hpf (0-5)
[2021-11-01 08:07] LABS: Alanine Aminotransferase 15 U/L (0-33); Albumin Level 4.7 g/dL (3.5-5.2); Alkaline Phosphatase 99 U/L (35-105); Anion Gap 13.8 (5-19); Aspartate Amino Transferase 16 U/L (0-32); Blood Urea Nitrogen 14 mg/dL (6-20); Calcium 9.8 mg/dL (8.5-10.5); Carbon Dioxide 28 mmol/L (22-29); Chloride 101 mmol/L (98-107); Globulin 2.9 g/dL (1.3-4.6); Glomerular Filtration Rate 74.5 mL/min (90-130); Glucose 128 mg/dL (65-115); Lipase 32 U/L (13-60); Magnesium 2.1 mg/dL (1.7-2.3); Osmolality Calculated 290 mOsm/kg (285-295); Potassium 3.8 mmol/L (3.5-5.1); Sodium 139 mmol/L (136-145); Total Bilirubin 0.3 mg/dL (0.15-1.2); Total Protein 7.6 g/dL (6.6-8.7)
[2021-11-01 08:07] LABS: Add Urine Culture? No; Bacteria Urine TRACE /hpf
[2021-11-01 08:08] LABS: Troponin(5th) Baseline 7 ng/L (0-10)
[2021-11-01 08:21] VITALS: BP 166/123; PULSE 67; RESP 12; O2SAT 94
--- NOTE | 2021-11-01 09:21 | ECG_ITS ---
[facility] Test Date: 2021-11-01 Pat Name: Trinity Benites Department: Room: Gender: Female An/Syq 13 Nav/C2 Operator: NAZ: 1965 Requested By: Juanpablo Cooper Order Number: [id number] Dane MD: Jadiel Krishna M.D. Measurements Intervals [place] Rate: 68 P: 40 OR: 177 QRS: 19 QRSD: 109 T: 28 QT: 423 QTc: 451 Interpretive Statements SINUS RHYTHM POSSIBLE INFERIOR MYOCARDIAL INFARCTION , PROBABLY OLD [30 ms Q WAVE IN II/aVF] Compared to ECG 11/01/2021 07:27:44 No significant changes Electronically Signed On 11-01-2021 13:25:19 CDT by Jadiel Krishna M.D. [email or web address].[email or web address]/[id number]
[2021-11-01 09:59] LABS: Troponin 5 2HR 9.63 ng/L (0-10)
[2021-11-01 10:25] LABS: Troponin 5 2HR Delta 2.63 ABS# (0-10)
== END 2021-11-01 10:26 | disposition home or self-care (01) ==
PROVIDERS: Emergency Provider Student in an Organized Health Care Education/Training Program; PCP Family Medicine
DX: R07.89 Other chest pain (principal); N30.00 Acute cystitis without hematuria; G47.30 Sleep apnea, unspecified; Z79.82 Long term (current) use of aspirin; J44.9 Chronic obstructive pulmonary disease, unspecified; E11.9 Type 2 diabetes mellitus without complications; I10 Essential (primary) hypertension; Z87.891 Personal history of nicotine dependence
CPT/HCPCS: 70450; 71045; 80053; 81001; 83690; 83735; 84484; 85025; 93005; 99285

== ENCOUNTER → 2021-11-20 08:50 | Outpatient (BNVA) | payer MEDICARE, MEDICAID, SELFPAY | PROVIDERS: PCP Family Medicine; Visit Provider Internal Medicine Cardiovascular Disease | DX: R07.9 Chest pain, unspecified (principal); R00.2 Palpitations | CPT/HCPCS: 93242; 99213; 99214 ==

== ENCOUNTER → 2021-12-10 14:30 | Outpatient (BNVA) | payer MEDICARE, MEDICAID, SELFPAY | PROVIDERS: PCP Family Medicine; Visit Provider Family Medicine | DX: E03.9 Hypothyroidism, unspecified (principal); E11.9 Type 2 diabetes mellitus without complications; E53.8 Deficiency of other specified B group vitamins; E55.9 Vitamin D deficiency, unspecified; I10 Essential (primary) hypertension; K59.09 Other constipation | CPT/HCPCS: 80053; 80061; 82306; 82607; 83036; 83735; 84439; 84443; 84481; 85025 ==

== ENCOUNTER → 2022-04-15 09:18 | Outpatient (BNVA) | payer MEDICARE, MEDICAID, SELFPAY | PROVIDERS: PCP Nurse Practitioner Family; Visit Provider Internal Medicine | DX: E11.9 Type 2 diabetes mellitus without complications (principal); E03.8 Other specified hypothyroidism; E06.3 Autoimmune thyroiditis; E55.9 Vitamin D deficiency, unspecified; E53.8 Deficiency of other specified B group vitamins; Z79.890 Hormone replacement therapy | CPT/HCPCS: 36415; 80053; 80061; 82044; 82306; 82607; 83036; 84439; 84443; 84480; 99204 ==

== ENCOUNTER → 2022-05-20 13:31 | Outpatient (BNVA) | payer MEDICARE, MEDICAID, SELFPAY | PROVIDERS: PCP Nurse Practitioner Family; Visit Provider Nurse Practitioner Family | DX: I25.10 Atherosclerotic heart disease of native coronary artery without angina pectoris (principal); I10 Essential (primary) hypertension; Z87.891 Personal history of nicotine dependence; Z79.82 Long term (current) use of aspirin | CPT/HCPCS: 99214 ==

== ENCOUNTER 2022-06-21 06:39 | Outpatient (CLI) | payer MEDICARE, MEDICAID, SELFPAY ==
[2022-06-21 06:50] VITALS: BMI 42.4
--- NOTE | 2022-06-21 06:51 | ECG_ITS ---
[facility] Test Date: 2022-06-21 Pat Name: Trinity Benites Department: Room: Gender: Female Medical Chemist: : 1965 Requested By: Kendra Nuñez Order Number: [id number] Vela MD: Jadiel Krishna M.D. Interpretive Statements NAME OF STUDY: EXERCISE SESTAMIBI STRESS TEST INDICATION: [Chest Pain] EXERCISE DATA: The patient was exercised by Akhil protocol. Baseline heart rate was 79 beats per minute. Baseline blood pressure was 149/98 millimeters of mercury. Target heart rate was 139 beats per minute. Maximum heart rate achieved was 161, which was 115% of the target heart rate. Maximum blood pressure was 190/88 millimeters of mercury. Total exercise time was 2 minutes 34 seconds. Maximum METs achieved was 4.6. The reason for ending the test was achieving target heart rate. The patient complained of shortness of breath during the stress test, which then resolved at the end of the test. ELECTROCARDIOGRAM: BASELINE: Showed sinus rhythm, normal axis, no significant ST-T changes at the baseline noted. [] EXERCISE: At the peak exercise level, [] No significant ST-T changes suggestive of ischemia noted. [] RECOVERY: During the recovery period, heart rate dropped appropriately. No significant ST-T changes in the recovery suggestive of ischemia noted. [] CONCLUSION: 1. Exercise capacity is poor 2. Heart rate response was appropriate. 3. Blood pressure response was appropriate. 4. Symptoms not suggestive of ischemia. 5. Electrocardiogram portion of the stress test was not suggestive of ischemia. 6. Nuclear scan will be documented separately. Electronically Signed On 07-10-2022 21:36:57 CDT by Jadiel Krishna M.D. [id number]
--- NOTE | 2022-06-21 06:52 | NMCV_ITS ---
NM ines perf SPECT r/s* [id number] Trinity Benites Age: 56 Gender: F : 1965 Exam Date: 06/21/2022 06:52 Ordering Phys: Kendra Nuñez Technologist: JESSA Pickard Exam Location: [facility] Indications: CHEST PAIN STRESS TEST Please [facility] IMAGE PROTOCOL Rest/Stress 1 Exercise Day Radiopharmaceutical Dose (mCi) Administration Site Administered by Rest: Tc-99m 10.7 IV JESSA Winter Sestamibi Stress:Tc-99m 32.4 IV JESSA Winter Sestamidanii Rest: 21-Jun-2022 60 Discovery 630 Stress: 21-Jun-2022 30 Discovery 630 Radiopharmaceutical was injected at 90 % maximum heart rate. Images obtained in supine and prone position. SPECT RESULTS Technical Quality: Excellent Raw Data Analysis: Normal Image Corrections: No attenuation or motion correction applied Summed Stress Score: 0 Summed Rest Score: 1 Summed Difference Score: 0 PERFUSION FINDINGS SPECT images demonstrate homogeneous tracer distribution throughout the myocardium. FUNCTIONAL RESULTS (calculated via Gated SPECT) Stress Image LV EF (%): 91 Stress EDV (mL):87 TID: 0.79 Stress ESV (mL):8 FUNCTIONAL FINDINGS: There is normal left ventricular systolic function. IMPRESSIONS 1. Normal myocardial perfusion imaging with no evidence of ischemia 2. LV systolic function is normal Jadiel Krishna MD (Electronically Signed) Final Date: 21 Jun 2022 13:40 S
[2022-06-21 09:02] VITALS: BP 152/86; PULSE 82
== END 2022-06-21 06:40 | disposition home or self-care (01) ==
LOC: CDL 06:39
PROVIDERS: PCP Nurse Practitioner Family; Visit Provider Nurse Practitioner Family
DX: R07.9 Chest pain, unspecified (principal)
CPT/HCPCS: 36415; 78452; 93017; A9500

== ENCOUNTER → 2022-06-28 13:24 | Outpatient (BNVA) | payer MEDICARE, MEDICAID, SELFPAY | PROVIDERS: PCP Nurse Practitioner Family; Visit Provider Nurse Practitioner Family | DX: R07.9 Chest pain, unspecified (principal); I10 Essential (primary) hypertension; I25.10 Atherosclerotic heart disease of native coronary artery without angina pectoris; Z87.891 Personal history of nicotine dependence; Z79.82 Long term (current) use of aspirin | CPT/HCPCS: 99214 ==

== ENCOUNTER 2022-07-13 09:19 | Outpatient (CLI) | payer MEDICARE, MEDICAID, SELFPAY ==
--- NOTE | 2022-07-13 09:31 | XRR_ITS ---
PROCEDURE INFORMATION: Exam: XR Right Hip Exam date and time: 07/13/2022 9:37 AM Age: 56 years old Clinical indication: Hip pain; Right hip; Additional info: Right hip pain TECHNIQUE: Imaging protocol: Radiologic exam of the right hip. Views: 1 view hip with pelvis when performed. COMPARISON: CT abdomen pelvis w con* [id number] 12/10/2018 1:22 PM FINDINGS: Bones/joints: The visualized pelvis is grossly intact. The hip joint maintains normal alignment. No proximal femoral fracture identified. Soft tissues: Unremarkable. XR/XR hip RT 2-3V wo/w pel* [id number] IMPRESSION: 1. No fracture identified. 2. No significant degenerative changes identified.
== END 2022-07-13 09:20 | disposition home or self-care (01) ==
LOC: RAD 09:23
PROVIDERS: PCP Nurse Practitioner Family; Visit Provider Nurse Practitioner Family
DX: M25.551 Pain in right hip (principal)
CPT/HCPCS: 73502

== ENCOUNTER → 2022-07-15 11:02 | Outpatient (BNVA) | payer MEDICARE, MEDICAID, SELFPAY | PROVIDERS: PCP Nurse Practitioner Family; Visit Provider Internal Medicine | DX: E06.3 Autoimmune thyroiditis (principal); E03.8 Other specified hypothyroidism; E11.9 Type 2 diabetes mellitus without complications; E55.9 Vitamin D deficiency, unspecified; E53.8 Deficiency of other specified B group vitamins; M25.50 Pain in unspecified joint; Z79.890 Hormone replacement therapy; I25.10 Atherosclerotic heart disease of native coronary artery without angina pectoris | CPT/HCPCS: 36415; 82306; 83036; 84439; 84443; 99214 ==

== ENCOUNTER 2022-09-09 04:18 | Emergency (ER) | payer MEDICARE, MEDICAID, SELFPAY ==
--- NOTE | 2022-09-09 04:19 | XRR_ITS ---
PROCEDURE INFORMATION: Exam: XR Chest Exam date and time: 09/09/2022 4:29 AM Age: 56 years old Clinical indication: Pain; Chest pressure; Additional info: Cp TECHNIQUE: Imaging protocol: Radiologic exam of the chest. Views: 1 view. COMPARISON: CR XR chest 1V portable [id number] 11/01/2021 7:31 AM FINDINGS: Tubes, catheters and devices: EKG monitoring leads overlie the thoracic wall. Lungs: A nonspecific opacity at the left lung base, above the left lateral costophrenic angle. Pleural spaces: No pleural effusion or pneumothorax. Heart/Mediastinum: Normal in size. Bones/joints: No acute fracture is identified. XR/XR chest 1V portable [id number] IMPRESSION: A nonspecific opacity at the left lung base, above the left lateral costophrenic angle. This may represent atelectasis or in the appropriate clinical setting, pneumonia.
--- NOTE | 2022-09-09 04:19 | ECG_ITS ---
[facility] Test Date: 2022-09-09 Pat Name: Trinity Benites Department: Room: Gender: Female Fitness/Wellness Director: : 1965 Requested By: Chavez Santiago Order Number: [id number] Dane MD: Deepthi Osorio M.D. Measurements Intervals [place] Rate: 94 P: 54 MT: 175 QRS: 10 QRSD: 94 T: 27 QT: 355 QTc: 446 Interpretive Statements SINUS RHYTHM Compared to ECG 11/01/2021 09:23:31 Myocardial infarct finding no longer present Electronically Signed On 09-09-2022 4:29:22 CDT by Deepthi Osorio M.D. [id number]
[2022-09-09 04:29] VITALS: BP 183/98; PULSE 105; RESP 16; O2SAT 96; BMI 43.9
[2022-09-09 04:32] VITALS: TEMP 36.4
--- NOTE | 2022-09-09 04:34 | ED_ITS ---
Documented by User: Chavez Santiago MD 09/09/22 04:36 HPI - Chest Pain General: Chief Complaint: Chest Pain Stated Complaint: Chest Pains Time Seen by Provider: 09/09/22 04:19 Source: patient Mode of arrival: ambulatory Limitations: no limitations History of Present Illness: 56-year-old female states that she started having some chest pain at 3 AM. States that the pressure type pain in her chest states it is mild in nature just a discomfort. She denies any shortness of breath she had no vomiting or diarrhea she denies any worsening improving factors. Associated symptoms: Deny abdominal pain, dyspnea, fever(s), nausea or vomiting Review of Systems Const: Denies: fever(s), chills, body aches or change in appetite ENMT: Denies: throat pain or dental pain Card: Reports: chest pain Resp: Denies: dyspnea GI: Denies: abdominal pain, nausea, vomiting or diarrhea : Denies: dysuria Musc: Denies: neck pain or back pain Skin/Breast: Denies: rash Neuro: Denies: headache(s) PFSH ED PFSH: Medical History Arthritis Atherosclerosis of coronary artery Chronic back pain Chronic constipation Congenital hypothyroidism COPD (chronic obstructive pulmonary disease) Diabetes Hypertension SEVERO (obstructive sleep apnea) Sleep apnea Surgical History H/O esophagogastroduodenoscopy 03/12/2019: Bile reflux Hx of section Hx of cholecystectomy Hx of hysterectomy Hx of tonsillectomy Status post colonoscopy 03/12/2019: Incomplete, will schedule barium enema Family History Other Diabetes Hyperlipidemia Hypertension Social History Smoking and tobacco status: former smoker Quit status (tobacco): has quit using tobacco Year quit tobacco: 2014 Former quit date comment: 0.5 PPD x 16 yrs Second hand smoke exposure: Yes Smoking risk assessment/counseling performed?: Yes Alcohol intake: never Substance/Drug Use: never Adopted: No Lives independently: Yes Household members: spouse and children Marital status: service: No Current occupational status: disabled Current gender identity: Female Special adam needs: No Agree to transfusion: Yes Physical Exam Const: COMMON NORMALS: no acute distress, patient oriented x3 and healthy appearing HENMT: COMMON NORMALS: normocephalic and atraumatic HEAD & SCALP: normocephalic and atraumatic Neck/C-Spine: COMMON NORMALS: full ROM and supple Chest: COMMONS NORMALS: normal inspection of the chest and normal palpation of entire chest wall Resp: COMMON NORMALS: normal respiratory effort, No retractions, No use of accessory muscles and clear to auscultation bilaterally AUSCULTATION: clear to auscultation bilaterally Cardio: COMMON NORMALS: regular rate, regular rhythm and No murmurs present (Cardio) RATE: regular rate RHYTHM: regular rhythm GI: COMMON NORMALS: Normal to inspection, nondistended, normoactive bowel sounds present, Soft to palpation, non-tender and no masses PALPATION: Yes Soft to palpation Extremity: COMMON NORMALS: normal to inspection and full ROM Neuro: COMMON NORMALS: patient oriented x3, moves all extremities and no focal motor deficits Psych: COMMON NORMALS: mental status grossly normal, Normal thought process present and cooperative THOUGHT PROCESS: Normal thought process present Skin: COMMON NORMALS: no rashes or lesions noted and no wounds GENERAL SKIN EXAM: no rashes or lesions noted Course Vital Signs: Vital signs: Vital Signs Temperature 97.6 F 09/09/22 04:32 Pulse Rate 77 09/09/22 05:35 Respiratory Rate 15 09/09/22 05:35 Blood Pressure 180/95 09/09/22 07:30 Pulse Oximetry 94 09/09/22 05:35 MDM - Chest Pain Medical Records I reviewed the patient's medical records. Lab Data I reviewed the patient's lab results. 09/09/22 04:30 09/09/22 04:30 Radiology Impressions Chest X-Ray 09/09/22 04:19 IMPRESSION: A nonspecific opacity at the left lung base, above the left lateral costophrenic angle. This may represent atelectasis or in the appropriate clinical setting, pneumonia. Laboratory Results WBC 8.0 10^3/uL (4.0-10.0) 09/09/22 04:30 RBC 4.38 10^6/uL (4.1-5.3) 09/09/22 04:30 Hgb 12.7 g/dL (11.5-15.3) 09/09/22 04:30 Hct 39.7 % (37.0-47.0) 09/09/22 04:30 MCV 90.6 fl (81-99) 09/09/22 04:30 MCH 29.0 pg (28.0-34.0) 09/09/22 04:30 MCHC 32.0 g/dL (30.0-36.0) 09/09/22 04:30 RDW 13.9 % (12.1-15.1) 09/09/22 04:30 Plt Count 248 10^3/cmm (130-400) 09/09/22 04:30 MPV 9.4 fL (7.4-10.4) 09/09/22 04:30 Neut % (Auto) 70.1 % 09/09/22 04:30 Lymph % (Auto) 20.6 % 09/09/22 04:30 [place] % (Auto) 6.1 % 09/09/22 04:30 Eos % (Auto) 2.3 % 09/09/22 04:30 Baso % (Auto) 0.6 % 09/09/22 04:30 Neut # (Auto) 5.61 10^3/uL (1.8-7.7) 09/09/22 04:30 Lymph # (Auto) 1.7 10^3/uL (0.8-4.8) 09/09/22 04:30 [place] # (Auto) 0.5 10^3/uL (0.2-0.9) 09/09/22 04:30 Eos # (Auto) 0.2 10^3/uL (0.0-0.8) 09/09/22 04:30 Baso # (Auto) 0.1 10^3/uL (0.0-0.1) 09/09/22 04:30 Nucleated RBC % (auto) 0 % 09/09/22 04:30 Nucleated RBCs # 0.0 /100WBC 09/09/22 04:30 PT 11.70 SECONDS (12.1-14.9) L 09/09/22 04:30 INR 0.84 (0.8-1.2) 09/09/22 04:30 Sodium 139 mmol/L (136-145) 09/09/22 04:30 Potassium 3.6 mmol/L (3.5-5.1) 09/09/22 04:30 Chloride 101 mmol/L (98-107) 09/09/22 04:30 Carbon Dioxide 27 mmol/L (22-29) 09/09/22 04:30 Anion Gap 14.6 (5-19) 09/09/22 04:30 BUN 16 mg/dL (6-20) 09/09/22 04:30 Creatinine 0.7 mg/dL (0.5-0.9) 09/09/22 04:30 GFR Calculation 86.6 mL/min (90-130) L 09/09/22 04:30 Glucose 122 mg/dL (65-115) H 09/09/22 04:30 Calculated Osmolality 290 mOsm/kg (285-295) 09/09/22 04:30 Calcium 9.4 mg/dL (8.5-10.5) 09/09/22 04:30 Total Bilirubin 0.2 mg/dL (0.15-1.2) 09/09/22 04:30 AST 15 U/L (0-32) 09/09/22 04:30 ALT 14 U/L (0-33) 09/09/22 04:30 Alkaline Phosphatase 92 U/L (35-105) 09/09/22 04:30 Troponin T Baseline 8 ng/L (0-10) 09/09/22 04:30 Troponin T 120 Minute 6.00 ng/L (0-10) 09/09/22 06:09 Delta Troponin T -2 ABS# (0-10) L 09/09/22 06:09 Total Protein 6.8 g/dL (6.6-8.7) 09/09/22 04:30 Albumin 4.6 g/dL (3.5-5.2) 09/09/22 04:30 Globulin 2.2 g/dL (1.3-4.6) 09/09/22 04:30 EKG Data EKG 1: I personally reviewed and interpreted this EKG as follows: EKG interpretation date: 09/09/22 EKG interpretation time: 04:26 Interpretation: nsr hr [address] or t wave abnormalities qrs 94 qtc 407 Discharge Plan Discharge Patient Disposition: Home Clinical Impression: Chest pain, Hypertension Condition: Stable Prescriptions: New isosorbide mononitrate 30 mg tablet extended release 24 hr 30 mg PO DAILY Qty: 30 0RF No Action acetaminophen [Tylenol Arthritis Pain] 650 mg tablet extended release 1,300 mg PO TID PRN (Reason: pain) 30 Days Qty: 300 1RF latanoprost 0.005 % drops 1 drp ophthalmic (eye) DAILY pravastatin 10 mg tablet 10 mg PO DAILY Qty: 90 3RF hydrochlorothiazide 25 mg tablet 25 mg PO DAILY lisinopril 40 mg tablet 40 mg PO DAILY Qty: 90 3RF duloxetine 30 mg capsule,delayed release(DR/EC) 30 mg PO DAILY Qty: 90 1RF pantoprazole 40 mg tablet,delayed release (DR/EC) 40 mg PO DAILY Qty: 90 3RF cholecalciferol (vitamin D3) 50 mcg (2,000 unit) capsule 50 mcg PO DAILY Qty: 90 0RF levothyroxine 112 mcg tablet See Rx Instructions .ROUTE .COMPLEX Qty: 30 5RF Dose Instruction: TAKE 1 TABLET BY MOUTH EVERY DAY Rx Instructions: TAKE 1 TABLET BY MOUTH EVERY DAY aspirin [Aspir-81] 81 mg Tablet,Delayed Release (Dr/Ec) 81 mg PO DAILY Discharge Orders: Discharge ED (Routine); Ordered 09/09/22 Ordered By: Ruiz Ricardo Referrals: Gela Kinney APN [Primary Care Provider] - Discharge Diet: Usual diet Patient Instructions: Opioid Safety, Pain Management Activity Restrictions/Additional Instructions: You were seen today for chest pain. Your cardiac enzymes EKG were normal stress test done in June of this year was also normal. We will add isosorbide mononitrate 30 mg daily also take 1 baby aspirin 81 mg daily. Follow-up with cardiology clinic next week Coding Level of Care Code ED Water Taxi Driver for Chg Fwd Documented by User: Ruiz Ricardo DO 09/11/22 00:33 HPI - Chest Pain General: Chief Complaint: Chest Pain Stated Complaint: Chest Pains Time Seen by Provider: 09/09/22 04:19 PFSH ED PFSH: Medical History Arthritis Atherosclerosis of coronary artery Chronic back pain Chronic constipation Congenital hypothyroidism COPD (chronic obstructive pulmonary disease) Diabetes Hypertension SEVERO (obstructive sleep apnea) Sleep apnea Surgical History H/O esophagogastroduodenoscopy 03/12/2019: Bile reflux Hx of section Hx of cholecystectomy Hx of hysterectomy Hx of tonsillectomy Status post colonoscopy 03/12/2019: Incomplete, will schedule barium enema Family History Other Diabetes Hyperlipidemia Hypertension Social History Smoking and tobacco status: former smoker Quit status (tobacco): has quit using tobacco Year quit tobacco: 2014 Former quit date comment: 0.5 PPD x 16 yrs Second hand smoke exposure: Yes Smoking risk assessment/counseling performed?: Yes Alcohol intake: never Substance/Drug Use: never Adopted: No Lives independently: Yes Household members: spouse and children Marital status: service: No Current occupational status: disabled Current gender identity: Female Special adam needs: No Agree to transfusion: Yes Course Vital Signs: Vital signs: Vital Signs Temperature 97.6 F 09/09/22 04:32 Pulse Rate 77 09/09/22 05:35 Respiratory Rate 15 09/09/22 05:35 Blood Pressure 180/95 09/09/22 07:30 Pulse Oximetry 94 09/09/22 05:35 MDM - Chest Pain Medical Decision Making Care signed out to Dr. Santiago at change of shift. See final notes for diagnosis and disposition. Care assumed at change shift EKG shows no acute changes cardiac enzymes unremarkable. Patient reports previously having an angiogram several years ago that was negative this was in [place] before she moved here. She had a stress test in June of this year Lexiscan sestamibi stress test that was read as negative as well. She had recently been on Cardizem but tells me it was stopped because of bradycardia. Blood pressure is elevated we will add isosorbide mononitrate 30 mg daily continue taking baby aspirin daily and refer back to cardiology. Patient's oxygen saturations heart rate are normal she has no signs of pneumonia no signs of widening mediastinum. No evidence of PE. Lab Data 09/09/22 04:30 09/09/22 04:30 Radiology Impressions Chest X-Ray 09/09/22 04:19 IMPRESSION: A nonspecific opacity at the left lung base, above the left lateral costophrenic angle. This may represent atelectasis or in the appropriate clinical setting, pneumonia. Laboratory Results WBC 8.0 10^3/uL (4.0-10.0) 09/09/22 04:30 RBC 4.38 10^6/uL (4.1-5.3) 09/09/22 04:30 Hgb 12.7 g/dL (11.5-15.3) 09/09/22 04:30 Hct 39.7 % (37.0-47.0) 09/09/22 04:30 MCV 90.6 fl (81-99) 09/09/22 04:30 MCH 29.0 pg (28.0-34.0) 09/09/22 04:30 MCHC 32.0 g/dL (30.0-36.0) 09/09/22 04:30 RDW 13.9 % (12.1-15.1) 09/09/22 04:30 Plt Count 248 10^3/cmm (130-400) 09/09/22 04:30 MPV 9.4 fL (7.4-10.4) 09/09/22 04:30 Neut % (Auto) 70.1 % 09/09/22 04:30 Lymph % (Auto) 20.6 % 09/09/22 04:30 [place] % (Auto) 6.1 % 09/09/22 04:30 Eos % (Auto) 2.3 % 09/09/22 04:30 Baso % (Auto) 0.6 % 09/09/22 04:30 Neut # (Auto) 5.61 10^3/uL (1.8-7.7) 09/09/22 04:30 Lymph # (Auto) 1.7 10^3/uL (0.8-4.8) 09/09/22 04:30 [place] # (Auto) 0.5 10^3/uL (0.2-0.9) 09/09/22 04:30 Eos # (Auto) 0.2 10^3/uL (0.0-0.8) 09/09/22 04:30 Baso # (Auto) 0.1 10^3/uL (0.0-0.1) 09/09/22 04:30 Nucleated RBC % (auto) 0 % 09/09/22 04:30 Nucleated RBCs # 0.0 /100WBC 09/09/22 04:30 PT 11.70 SECONDS (12.1-14.9) L 09/09/22 04:30 INR 0.84 (0.8-1.2) 09/09/22 04:30 Sodium 139 mmol/L (136-145) 09/09/22 04:30 Potassium 3.6 mmol/L (3.5-5.1) 09/09/22 04:30 Chloride 101 mmol/L (98-107) 09/09/22 04:30 Carbon Dioxide 27 mmol/L (22-29) 09/09/22 04:30 Anion Gap 14.6 (5-19) 09/09/22 04:30 BUN 16 mg/dL (6-20) 09/09/22 04:30 Creatinine 0.7 mg/dL (0.5-0.9) 09/09/22 04:30 GFR Calculation 86.6 mL/min (90-130) L 09/09/22 04:30 Glucose 122 mg/dL (65-115) H 09/09/22 04:30 Calculated Osmolality 290 mOsm/kg (285-295) 09/09/22 04:30 Calcium 9.4 mg/dL (8.5-10.5) 09/09/22 04:30 Total Bilirubin 0.2 mg/dL (0.15-1.2) 09/09/22 04:30 AST 15 U/L (0-32) 09/09/22 04:30 ALT 14 U/L (0-33) 09/09/22 04:30 Alkaline Phosphatase 92 U/L (35-105) 09/09/22 04:30 Troponin T Baseline 8 ng/L (0-10) 09/09/22 04:30 Troponin T 120 Minute 6.00 ng/L (0-10) 09/09/22 06:09 Delta Troponin T -2 ABS# (0-10) L 09/09/22 06:09 Total Protein 6.8 g/dL (6.6-8.7) 09/09/22 04:30 Albumin 4.6 g/dL (3.5-5.2) 09/09/22 04:30 Globulin 2.2 g/dL (1.3-4.6) 09/09/22 04:30 Discharge Plan Discharge Patient Disposition: Home Clinical Impression: Chest pain, Hypertension Condition: Stable Prescriptions: New isosorbide mononitrate 30 mg tablet extended release 24 hr 30 mg PO DAILY Qty: 30 0RF No Action acetaminophen [Tylenol Arthritis Pain] 650 mg tablet extended release 1,300 mg PO TID PRN (Reason: pain) 30 Days Qty: 300 1RF latanoprost 0.005 % drops 1 drp ophthalmic (eye) DAILY pravastatin 10 mg tablet 10 mg PO DAILY Qty: 90 3RF hydrochlorothiazide 25 mg tablet 25 mg PO DAILY lisinopril 40 mg tablet 40 mg PO DAILY Qty: 90 3RF duloxetine 30 mg capsule,delayed release(DR/EC) 30 mg PO DAILY Qty: 90 1RF pantoprazole 40 mg tablet,delayed release (DR/EC) 40 mg PO DAILY Qty: 90 3RF cholecalciferol (vitamin D3) 50 mcg (2,000 unit) capsule 50 mcg PO DAILY Qty: 90 0RF levothyroxine 112 mcg tablet See Rx Instructions .ROUTE .COMPLEX Qty: 30 5RF Dose Instruction: TAKE 1 TABLET BY MOUTH EVERY DAY Rx Instructions: TAKE 1 TABLET BY MOUTH EVERY DAY aspirin [Aspir-81] 81 mg Tablet,Delayed Release (Dr/Ec) 81 mg PO DAILY Discharge Orders: Discharge ED (Routine); Ordered 09/09/22 Ordered By: Ruiz Ricardo Referrals: Gela Kinney APN [Primary Care Provider] - Discharge Diet: Usual diet Patient Instructions: Opioid Safety, Pain Management Activity Restrictions/Additional Instructions: You were seen today for chest pain. Your cardiac enzymes EKG were normal stress test done in June of this year was also normal. We will add isosorbide mononitrate 30 mg daily also take 1 baby aspirin 81 mg daily. Follow-up with cardiology clinic next week Coding Level of Care Code ED Water Taxi Driver for Mike Alonzo
[2022-09-09 04:39] LABS: Basophils # 0.1 10^3/uL (0.0-0.1); Basophils % 0.6 %; Eosinophils # 0.2 10^3/uL (0.0-0.8); Eosinophils % 2.3 %; Hematocrit 39.7 % (37.0-47.0); Hemoglobin 12.7 g/dL (11.5-15.3); Lymphocytes # 1.7 10^3/uL (0.8-4.8); Lymphocytes % 20.6 %; Mean Corpuscular Volume 90.6 fl (81-99); Mean Platelet Volume 9.4 fL (7.4-10.4); Monocytes # 0.5 10^3/uL (0.2-0.9); Monocytes % 6.1 %; Neutrophils # 5.61 10^3/uL (1.8-7.7); Neutrophils % 70.1 %; Nucleated Red Blood Cells % 0 %; Platelet Count 248 10^3/cmm (130-400); Red Blood Count 4.38 10^6/uL (4.1-5.3); Red Cell Distribution Width 13.9 % (12.1-15.1)
[2022-09-09] MEDS: aspirin 81 mg Chew Tablet 324 MG PO (04:44)
[2022-09-09] MEDS: labetalol 5 mg/mL SDV 20mL 10 MG IVP (04:47)
[2022-09-09 04:51] VITALS: BP 184/120
[2022-09-09 04:53] LABS: INR 0.84 (0.8-1.2)
[2022-09-09 04:58] LABS: Troponin(5th) Baseline 8 ng/L (0-10)
[2022-09-09 04:59] LABS: Alanine Aminotransferase 14 U/L (0-33); Albumin Level 4.6 g/dL (3.5-5.2); Alkaline Phosphatase 92 U/L (35-105); Anion Gap 14.6 (5-19); Aspartate Amino Transferase 15 U/L (0-32); Blood Urea Nitrogen 16 mg/dL (6-20); Calcium 9.4 mg/dL (8.5-10.5); Carbon Dioxide 27 mmol/L (22-29); Chloride 101 mmol/L (98-107); Globulin 2.2 g/dL (1.3-4.6); Glomerular Filtration Rate 86.6 mL/min (90-130); Glucose 122 mg/dL (65-115); Osmolality Calculated 290 mOsm/kg (285-295); Potassium 3.6 mmol/L (3.5-5.1); Sodium 139 mmol/L (136-145); Total Bilirubin 0.2 mg/dL (0.15-1.2); Total Protein 6.8 g/dL (6.6-8.7)
[2022-09-09] MEDS: aluminum-mag hydrox-simethicon 30 ML, sucralfate oral liq 1 GM PO (05:02)
[2022-09-09 05:35] VITALS: BP 162/107; PULSE 77; RESP 15; O2SAT 94
[2022-09-09] MEDS: hyDRALAzine 20 mg/mL INJ 1 mL 10 MG IVP (06:13)
--- NOTE | 2022-09-09 06:19 | ECG_ITS ---
[facility] Test Date: 2022-09-09 Pat Name: Trinity Benites Department: Room: Gender: Female Teaseler: : 1965 Requested By: Chavez Santiago Order Number: [id number] Dane MD: Deepthi Osorio M.D. Measurements Intervals [place] Rate: 79 P: 35 NC: 183 QRS: 7 QRSD: 109 T: 21 QT: 393 QTc: 452 Interpretive Statements SINUS RHYTHM Compared to ECG 09/09/2022 04:26:42 No significant changes Electronically Signed On 09-09-2022 12:32:17 CDT by Deepthi Osorio M.D. [id number]
[2022-09-09 07:06] LABS: Troponin 5 2HR Delta -2 ABS# (0-10)
[2022-09-09 07:30] VITALS: BP 180/95
== END 2022-09-09 07:52 | disposition home or self-care (01) ==
PROVIDERS: Emergency Medicine; Emergency Provider Family Medicine; PCP Nurse Practitioner Family
DX: R07.9 Chest pain, unspecified (principal); E11.9 Type 2 diabetes mellitus without complications; I10 Essential (primary) hypertension; I25.10 Atherosclerotic heart disease of native coronary artery without angina pectoris; G47.33 Obstructive sleep apnea (adult) (pediatric); Z79.82 Long term (current) use of aspirin; Z86.73 Personal history of transient ischemic attack (TIA), and cerebral infarction without residual deficits
CPT/HCPCS: 71045; 80053; 84484; 85025; 85610; 93005; 96374; 96375; 99285; J0360; J3490

== ENCOUNTER 2022-10-08 11:00 | Outpatient (CLI) | payer MEDICARE, MEDICAID, SELFPAY ==
[2022-10-08 11:42] LABS: Estmated Average Glucose 117; Hemoglobin A1C 5.7 % (4.0-6.0)
[2022-10-08 11:48] LABS: Free T4 Free Thyroxine 1.94 ng/dL (0.82-1.77); Thyroid Stimulating Hormone 0.44 uIU/mL (0.27-4.20)
[2022-10-08 12:19] LABS: 25 Hydroxy Vitamin D 27 ng/mL (30-100)
== END 2022-10-08 11:01 | disposition home or self-care (01) ==
PROVIDERS: PCP Nurse Practitioner Family; Visit Provider Internal Medicine
DX: E03.8 Other specified hypothyroidism (principal); E06.3 Autoimmune thyroiditis; E11.9 Type 2 diabetes mellitus without complications; E55.9 Vitamin D deficiency, unspecified
CPT/HCPCS: 36415; 82306; 83036; 84439; 84443

== ENCOUNTER → 2022-10-22 10:53 | Outpatient (BNVA) | payer MEDICARE, MEDICAID, SELFPAY | PROVIDERS: PCP Nurse Practitioner Family; Visit Provider Internal Medicine | DX: E11.9 Type 2 diabetes mellitus without complications (principal); E55.9 Vitamin D deficiency, unspecified; E03.8 Other specified hypothyroidism; E06.3 Autoimmune thyroiditis; E53.8 Deficiency of other specified B group vitamins; M25.50 Pain in unspecified joint; Z79.890 Hormone replacement therapy | CPT/HCPCS: 99214 ==

== ENCOUNTER → 2022-10-28 09:52 | Outpatient (BNVA) | payer MEDICARE, MEDICAID, SELFPAY | PROVIDERS: PCP Nurse Practitioner Family; Referring Provider Internal Medicine; Visit Provider Internal Medicine Rheumatology | DX: M45.6 Ankylosing spondylitis lumbar region (principal); Z79.899 Other long term (current) drug therapy; M19.90 Unspecified osteoarthritis, unspecified site; Z11.59 Encounter for screening for other viral diseases; Z11.1 Encounter for screening for respiratory tuberculosis; L80 Vitiligo; Z84.0 Family history of diseases of the skin and subcutaneous tissue | CPT/HCPCS: 36415; 72040; 72100; 72202; 73130; 73562; 73630; 80076; 82306; 82565; 85025; 85651; 86140; 86200; 86431; 86480; 86704; 86803; 86812; 87340; 99204 ==

== ENCOUNTER 2023-02-17 10:28 | Outpatient (CLI) | payer MEDICARE, MEDICAID, SELFPAY ==
[2023-02-17 11:30] LABS: Estmated Average Glucose 120; Hemoglobin A1C 5.8 % (4.0-6.0)
[2023-02-17 11:39] LABS: Creatinine Urine, Random 266 mg/dL (28-217); Microalbum Creatinine Ratio Ur 11 mg/dL (0-20); Microalbumin Random Urine 3 ug/dL (0-20)
[2023-02-17 11:51] LABS: 25 Hydroxy Vitamin D 30 ng/mL (30-100); Alanine Aminotransferase 13 U/L (0-33); Albumin Level 4.3 g/dL (3.5-5.2); Alkaline Phosphatase 88 U/L (35-105); Anion Gap 14.9 (5-19); Aspartate Amino Transferase 15 U/L (0-32); Blood Urea Nitrogen 10 mg/dL (6-20); Calcium 9.2 mg/dL (8.5-10.5); Carbon Dioxide 27 mmol/L (22-29); Chloride 102 mmol/L (98-107); Cholesterol 216 mg/dL (0-200); Globulin 2.8 g/dL (1.3-4.6); Glomerular Filtration Rate 86.2 mL/min (90-130); Glucose 106 mg/dL (65-115); HDL Cholesterol 72 mg/dL (60-100); LDL Cholesterol Calculated 128 mg/dL (50-129); LDL HDL Ratio 1.78 RATIO (0.00-3.22); Osmolality Calculated 289 mOsm/kg (285-295); Potassium 3.9 mmol/L (3.5-5.1); Sodium 140 mmol/L (136-145); Thyroid Stimulating Hormone 1.16 uIU/mL (0.27-4.20); Total Bilirubin 0.3 mg/dL (0.15-1.2); Total Protein 7.1 g/dL (6.6-8.7); Triglycerides 82 mg/dL (0-150)
== END 2023-02-17 10:29 | disposition home or self-care (01) ==
LOC: LAB 10:32
PROVIDERS: PCP Nurse Practitioner Family; Visit Provider Internal Medicine
DX: E11.9 Type 2 diabetes mellitus without complications (principal); E55.9 Vitamin D deficiency, unspecified; E03.8 Other specified hypothyroidism; E06.3 Autoimmune thyroiditis; E53.8 Deficiency of other specified B group vitamins; M25.50 Pain in unspecified joint
CPT/HCPCS: 36415; 80053; 80061; 82044; 82306; 83036; 84439; 84443

== ENCOUNTER → 2023-02-23 10:45 | Outpatient (BNVA) | payer OTHER, MEDICAID, SELFPAY | PROVIDERS: PCP Nurse Practitioner Family; Visit Provider Internal Medicine | DX: E55.9 Vitamin D deficiency, unspecified (principal); E03.8 Other specified hypothyroidism; E06.3 Autoimmune thyroiditis; E53.8 Deficiency of other specified B group vitamins; M25.50 Pain in unspecified joint; R73.03 Prediabetes; Z79.890 Hormone replacement therapy; M19.90 Unspecified osteoarthritis, unspecified site; L80 Vitiligo; Z79.899 Other long term (current) drug therapy; Z84.0 Family history of diseases of the skin and subcutaneous tissue | CPT/HCPCS: 99214 ==

== ENCOUNTER 2023-05-18 10:45 | Emergency (ER) | payer OTHER, MEDICAID, SELFPAY ==
[2023-05-18] VITALS (48 sets, daily range): BP systolic 156–185; BP diastolic 92–115; PULSE 79–105; RESP 13–21; TEMP 36.6; O2SAT 94–100
--- NOTE | 2023-05-18 10:48 | ECG_ITS ---
[facility] Test Date: 2023-05-18 Pat Name: Trinity Benites Department: Room: Gender: Female Motor Polarizer: : 1965 Requested By: Chavez Santiago Order Number: [id number] Reading MD: Darin López M.D. Measurements Intervals [place] Rate: 107 P: 49 ND: 177 QRS: 31 QRSD: 89 T: 42 QT: 338 QTc: 451 Interpretive Statements SINUS TACHYCARDIA ANTERIOR MYOCARDIAL INFARCTION , PROBABLY OLD [40+ ms Q WAVE AND/OR ST/T ABNORMALITY IN V3/V4] Compared to ECG 09/09/2022 06:06:09 Myocardial infarct finding now present Sinus rhythm no longer present Electronically Signed On 05-18-2023 23:54:55 CDT by Darin López M.D. [email or web address].[email or web address]/store/[id number] f
--- NOTE | 2023-05-18 10:48 | XR_ITS ---
WS: [id number] Exam: XR chest 1V portable [id number] Date/Time of Exam: 05/18/2023 11:02 AM Reason For Exam: cp Comparison 09/09/2022. Findings: The lungs are clear and fully expanded. Costophrenic angles are sharp. No infiltrates. Bronchovascula r relief appears normal. Cardiac silhouette is unremarkable. Bony elements are intact. IMPRESSION: Unremarkable chest radiograph.
--- NOTE | 2023-05-18 11:05 | W.ED.CHESTPA ---
HPI - Chest Pain General: Chief Complaint: Chest Pain Stated Complaint: heart issues, chest pain Time Seen by Provider: 05/18/23 11:01 Source: patient Mode of arrival: ambulatory Limitations: no limitations History of Present Illness: 57-year-old female states she woke up this morning at 2 AM states she had felt like her heart was racing she was hypertensive as well and having some chest pain and diaphoresis. States she took lisinopril her blood pressure is improved but she is still hypertensive she states she feels like her heart is just racing her pain is improved. Had some mild dyspnea. States she is to have a history of tachycardia did take a calcium channel jeffrey but states she has been off of it for a year because her heart rate was getting too low. Associated symptoms: Reports dyspnea and palpitations; Deny abdominal pain, fever(s), nausea or vomiting Review of Systems Const: Denies: fever(s), chills, body aches or change in appetite Eyes: Denies: blurry vision or eye discomfort ENMT: Denies: throat pain or dental pain Card: Reports: chest pain and palpitations Resp: Reports: dyspnea GI: Denies: abdominal pain, nausea, vomiting or diarrhea Musc: Denies: neck pain or back pain Skin/Breast: Denies: rash Neuro: Denies: headache(s) PFSH ED PFSH: Medical History Maico's disease Family history of psoriasis Vitiligo High risk medication use Inflammatory arthritis Atherosclerosis of coronary artery SEVERO (obstructive sleep apnea) Chronic constipation COPD (chronic obstructive pulmonary disease) Diabetes Congenital hypothyroidism Arthritis Chronic back pain Hypertension Sleep apnea Surgical History Status post colonoscopy 03/12/2019: Incomplete, will schedule barium enema H/O esophagogastroduodenoscopy 03/12/2019: Bile reflux Hx of cholecystectomy Hx of section Hx of tonsillectomy Hx of hysterectomy Family History Other Diabetes Hyperlipidemia Hypertension Social History Smoking and tobacco/nicotine status: former use of tobacco/nicotine Quit status (tobacco/nicotine): has quit using Year quit tobacco: 2014 Former quit date comment: 0.5 PPD x 16 yrs Second hand smoke exposure: Yes Alcohol intake: never Substance/Drug Use: never Adopted: No Lives independently: Yes Household members: spouse and children Marital status: service: No Current occupational status: disabled Current gender identity: Female Special adam needs: No Agree to transfusion: Yes Physical Exam Const: COMMON NORMALS: no acute distress, patient oriented x3 and healthy appearing HENMT: COMMON NORMALS: normocephalic and atraumatic HEAD & SCALP: normocephalic and atraumatic Neck/C-Spine: COMMON NORMALS: full ROM and supple Chest: COMMONS NORMALS: normal inspection of the chest Resp: COMMON NORMALS: normal respiratory effort, No retractions, No use of accessory muscles and clear to auscultation bilaterally AUSCULTATION: clear to auscultation bilaterally Cardio: COMMON NORMALS: regular rhythm and No murmurs present (Cardio) RATE: tachycardic RHYTHM: regular rhythm GI: COMMON NORMALS: Normal to inspection, nondistended, normoactive bowel sounds present, Soft to palpation, non-tender and no masses PALPATION: Yes Soft to palpation Extremity: COMMON NORMALS: normal to inspection and full ROM Neuro: COMMON NORMALS: patient oriented x3, moves all extremities and no focal motor deficits Psych: COMMON NORMALS: mental status grossly normal, Normal thought process present and cooperative THOUGHT PROCESS: Normal thought process present Skin: COMMON NORMALS: no rashes or lesions noted and no wounds GENERAL SKIN EXAM: no rashes or lesions noted Course Vital Signs: Vital signs: Vital Signs Temperature 98 F 05/18/23 10:56 Pulse Rate 93 05/18/23 14:05 Respiratory Rate 16 05/18/23 14:05 Blood Pressure 173/92 05/18/23 14:05 Pulse Oximetry 96 05/18/23 14:05 Oxygen Delivery Me thod Room Air 05/18/23 14:05 MDM - Chest Pain Medical Decision Making Patient presents here with chest pain along with hypertension he has no signs acute coronary syndrome troponins EKGs here are normal CTA is negative as well she feels improved we will start her on metoprolol at home she is follow-up with PCP and return if worsening she understands agrees plan Medical Records I reviewed the patient's medical records. Lab Data I reviewed the patient's lab results. 05/18/23 11:10 05/18/23 11:10 Laboratory Results WBC 8.42 10^3/uL (3.29-11.43) 05/18/23 11:10 RBC 4.40 10^6/uL (3.85-5.65) 05/18/23 11:10 Hgb 12.80 g/dL (11.27-16.99) 05/18/23 11:10 Hct 40.1 % (36-47) 05/18/23 11:10 MCV 91.1 fl (85-98) 05/18/23 11:10 MCH 29.1 pg (27-33) 05/18/23 11:10 MCHC 31.9 g/dL (30-55) 05/18/23 11:10 RDW 13.7 % (12.1-15.1) 05/18/23 11:10 Plt Count 254 10^3/cmm (157-399) 05/18/23 11:10 MPV 8.8 fL (7.4-10.4) 05/18/23 11:10 Neut % (Auto) 90.3 % 05/18/23 11:10 Lymph % (Auto) 5.3 % 05/18/23 11:10 [place] % (Auto) 3.2 % 05/18/23 11:10 Eos % (Auto) 0.8 % 05/18/23 11:10 Baso % (Auto) 0.2 % 05/18/23 11:10 Neut # (Auto) 7.59 10^3/uL (1.8-7.7) 05/18/23 11:10 Lymph # (Auto) 0.5 10^3/uL (0.8-4.8) L 05/18/23 11:10 [place] # (Auto) 0.3 10^3/uL (0.2-0.9) 05/18/23 11:10 Eos # (Auto) 0.1 10^3/uL (0.0-0.8) 05/18/23 11:10 Baso # (Auto) 0.0 10^3/uL (0.0-0.1) 05/18/23 11:10 Nucleated RBC % (auto) 0 % 05/18/23 11:10 Nucleated RBCs # 0.0 /100WBC 05/18/23 11:10 D-Dimer 0.84 ug/mLFEU (0-0.59) H 05/18/23 11:10 Sodium 137 mmol/L (136-145) 05/18/23 11:10 Potassium 4.4 mmol/L (3.5-5.1) 05/18/23 11:10 Chloride 101 mmol/L (98-107) 05/18/23 11:10 Carbon Dioxide 26 mmol/L (22-29) 05/18/23 11:10 Anion Gap 14.4 (5-19) 05/18/23 11:10 BUN 14 mg/dL (6-20) 05/18/23 11:10 Creatinine 0.6 mg/dL (0.5-0.9) 05/18/23 11:10 GFR Calculation 103.0 mL/min (90-130) 05/18/23 11:10 Glucose 121 mg/dL (65-115) H 05/18/23 11:10 Calculated Osmolality 286 mOsm/kg (285-295) 05/18/23 11:10 Calcium 8.9 mg/dL (8.5-10.5) 05/18/23 11:10 Total Bilirubin 0.5 mg/dL (0.15-1.2) 05/18/23 11:10 AST 15 U/L (0-32) 05/18/23 11:10 ALT 19 U/L (0-33) 05/18/23 11:10 Alkaline Phosphatase 96 U/L (35-105) 05/18/23 11:10 Troponin T Baseline 7 ng/L (0-10) 05/18/23 11:10 Troponin T 120 Minute 6.46 ng/L (0-10) 05/18/23 13:29 Delta Troponin T -0.54 ABS# (0-10) L 05/18/23 13:29 Total Protein 6.9 g/dL (6.6-8.7) 05/18/23 11:10 Albumin 4.3 g/dL (3.5-5.2) 05/18/23 11:10 Globulin 2.6 g/dL (1.3-4.6) 05/18/23 11:10 Lipase 25 U/L (13-60) 05/18/23 11:10 TSH 1.74 uIU/mL (0.27-4.20) 05/18/23 11:10 All radiology interpretation(s) finalized by discharge EKG Data EKG 1: I personally reviewed and interpreted this EKG as follows: EKG interpretation date: 05/18/23 EKG interpretation time: 10:48 Interpretation: sinus tach hr [address] elevation qrs 89 qtc 400 EKG 2: I personally reviewed and interpreted this EKG as follows: EKG interpretation date: 05/18/23 EKG interpretation time: 13:10 Interpretation: nsr hr [address] or t wave abnormalities qrs 98 wtc 417 Discharge Plan Discharge Patient Disposition: Home Clinical Impression: Hypertension, Chest pain Condition: Stable Prescriptions: New ondansetron 4 mg tablet,disintegrating 4 mg PO Q6H PRN (Reason: nausea and vomiting) Qty: 14 0RF metoprolol succinate 50 mg tablet extended release 24 hr 50 mg PO DAILY Qty: 30 0RF No Action latanoprost 0.005 % drops 1 drp ophthalmic (eye) QPM prednisone 2.5 mg tablet 2.5 mg PO DAILY Qty: 90 1RF acetaminophen 500 mg capsule 1,000 mg PO Q6H PRN (Reason: Pain) lisinopril 20 mg tablet See Rx Instructions .ROUTE .COMPLEX Rx Instructions: 20mg po qam may take extra tab if needed (max 2 tabs per day) prednisone 20 mg tablet 40 mg PO DAILY Rx Instructions: for 7 days (rx filled 05/10/23) albuterol sulfate 90 mcg/actuation HFA aerosol inhaler 2 puff INHALATION Q4H PRN (Reason: Shortness Of Breath) amoxicillin-pot clavulanate 875-125 mg tablet 1 tab PO Q12H Rx Instructions: for 7 days (rx filled 05/10/23) levothyroxine 112 mcg tablet 112 mcg PO QAM Aspir-81 81 mg Tablet,Delayed Release (Dr/Ec) 81 mg PO QAM pantoprazole 40 mg tablet,delayed release (DR/EC) 40 mg PO QAM duloxetine 30 mg capsule,delayed release(DR/EC) 30 mg PO QAM cholecalciferol (vitamin D3) 50 mcg (2,000 unit) capsule 50 mcg PO QAM Discharge Orders: Discharge ED (Routine); Ordered 05/18/23 Ordered By: Korby Jack Referrals: Gela Kinney APN [Primary Care Provider] - 1-3 days Discharge Diet: Advance as tolerated Discharge Activity: Resume usual activity Patient Instructions: Chest Pain (ED), Hypertension (ED) Coding Level of Care Code ED Registered Nurse Maternal Child for Mike Alonzo
[2023-05-18 11:19] LABS: Basophils % 0.2 %; Eosinophils # 0.1 10^3/uL (0.0-0.8); Eosinophils % 0.8 %; Hematocrit 40.1 % (36-47); Lymphocytes # 0.5 10^3/uL (0.8-4.8); Lymphocytes % 5.3 %; Mean Corpuscular HGB Conc 31.9 g/dL (30-55); Mean Corpuscular Hemoglobin 29.1 pg (27-33); Mean Corpuscular Volume 91.1 fl (85-98); Mean Platelet Volume 8.8 fL (7.4-10.4); Monocytes # 0.3 10^3/uL (0.2-0.9); Monocytes % 3.2 %; Neutrophils # 7.59 10^3/uL (1.8-7.7); Neutrophils % 90.3 %; Nucleated Red Blood Cells % 0 %; Platelet Count 254 10^3/cmm (157-399); Red Cell Distribution Width 13.7 % (12.1-15.1); White Blood Count 8.42 10^3/uL (3.29-11.43)
[2023-05-18] MEDS: labetalol 5 mg/mL SDV 20mL 10 MG IVP (11:25)
[2023-05-18 11:34] LABS: D Dimer 0.84 ug/mLFEU (0-0.59)
--- NOTE | 2023-05-18 11:35 | PC.PHAR ---
pt states she takes care of her own medications-pt states she no longer takes hydroxychloroquine 200mg bid ext shows last filled 03/25/23 30d/s-pt states she finished her titrating dose of prednisone and augmentin 2 days ago 05/16/23-notes are made in the pharmacy comments
--- NOTE | 2023-05-18 11:37 | CT_ITS ---
WS: [id number] CTA OF THE CHEST WITH PULMONARY EMBOLISM PROTOCOL TECHNIQUE: High-resolution contrast enhanced CTA of the chest with coronal and sagittal reformatted i amnas with pulmonary embolism protocol. MIP images are also reviewed. CLINICAL INFORMATION: sob COMPARISON: None. DLP: 418.[address] scans at [facility] use at least one of these dose optimization techniques: automated e xposure control; mA and/or kV adjustment per patient size (includes targeted exams where dose is matc hed to clinical indication); or iterative reconstruction. FINDINGS: Proximal main pulmonary arteries are normal. Normal segmental and subsegmental pulmonary arteries. No evidence of pulmonary embolus. Lungs are well aerated. No acute pulmonary. Normal caliber thoracic aorta. No mediastinal or hilar ly mphadenopathy. No axillary lymphadenopathy. Adrenal glands are normal. Cholecystectomy clips. Celiac and SMA are patent in the upper abdomen. Cho lecystectomy clips. Small LEFT adrenal adenoma. IMPRESSION: 1. No evidence of pulmonary embolus. 2. Lungs are well aerated. No acute pulmonary infiltrates.
[2023-05-18 11:41] LABS: Troponin(5th) Baseline 7 ng/L (0-10)
[2023-05-18 11:49] LABS: Alanine Aminotransferase 19 U/L (0-33); Albumin Level 4.3 g/dL (3.5-5.2); Alkaline Phosphatase 96 U/L (35-105); Anion Gap 14.4 (5-19); Aspartate Amino Transferase 15 U/L (0-32); Blood Urea Nitrogen 14 mg/dL (6-20); Calcium 8.9 mg/dL (8.5-10.5); Carbon Dioxide 26 mmol/L (22-29); Chloride 101 mmol/L (98-107); Creatinine Clr Calc Pharmacy 122.4578; Globulin 2.6 g/dL (1.3-4.6); Glucose 121 mg/dL (65-115); Lipase 25 U/L (13-60); Osmolality Calculated 286 mOsm/kg (285-295); Potassium 4.4 mmol/L (3.5-5.1); Sodium 137 mmol/L (136-145); Thyroid Stimulating Hormone 1.74 uIU/mL (0.27-4.20); Total Bilirubin 0.5 mg/dL (0.15-1.2); Total Protein 6.9 g/dL (6.6-8.7)
[2023-05-18] MEDS: iohexol 350 mg/mL 500 mL Btl (per mL) IV (12:16)
[2023-05-18] MEDS: hyDRALAzine 20 mg/mL INJ 1 mL 10 MG IVP (12:31)
--- NOTE | 2023-05-18 13:10 | ECG_ITS ---
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 Measurements Intervals [place] Rate: 91 P: 49 TX: 167 QRS: 30 QRSD: 98 T: 40 QT: 368 QTc: 455 Interpretive Statements SINUS RHYTHM POSSIBLE ANTERIOR MYOCARDIAL INFARCTION , PROBABLY OLD [30 ms Q WAVE IN V3/V4, OR R < 0.2 mV IN V4] Compared to ECG 05/18/2023 10:48:36 Sinus tachycardia no longer present Myocardial infarct finding still present Electronically Signed On 05-19-2023 0:04:52 CDT by Darin López M.D. [email or web address]
[2023-05-18 14:30] LABS: Troponin 5 2HR 6.46 ng/L (0-10)
[2023-05-18 14:32] LABS: Troponin 5 2HR Delta -0.54 ABS# (0-10)
[2023-05-18] MEDS: metoclopramide 5 mg/mL SDV 2 mL 10 MG IVP (14:42)
[2023-05-18] MEDS: diphenhydrAMINE 50 mg/mL SDV 1mL IVP (14:42)
== END 2023-05-18 15:17 | disposition home or self-care (01) ==
PROVIDERS: Emergency Provider Emergency Medicine; PCP Nurse Practitioner Family
DX: R07.9 Chest pain, unspecified (principal); I10 Essential (primary) hypertension; Z79.82 Long term (current) use of aspirin; Z87.891 Personal history of nicotine dependence; I25.10 Atherosclerotic heart disease of native coronary artery without angina pectoris; J44.9 Chronic obstructive pulmonary disease, unspecified; E11.9 Type 2 diabetes mellitus without complications
CPT/HCPCS: 36415; 71045; 71275; 80053; 83690; 84443; 84484; 85025; 85378; 93005; 96374; 96375; 99285; J0360; J1200; J2765; J3490; Q9967

== ENCOUNTER → 2023-05-19 09:50 | Outpatient (BNVA) | payer OTHER, MEDICAID, SELFPAY | PROVIDERS: PCP Nurse Practitioner Family; Visit Provider Internal Medicine Cardiovascular Disease | DX: I25.10 Atherosclerotic heart disease of native coronary artery without angina pectoris (principal); I10 Essential (primary) hypertension; I47.10 Supraventricular tachycardia, unspecified; E11.65 Type 2 diabetes mellitus with hyperglycemia; G47.33 Obstructive sleep apnea (adult) (pediatric); E03.9 Hypothyroidism, unspecified; Z87.891 Personal history of nicotine dependence | CPT/HCPCS: 99214 ==